=== PATIENT | male | born 1930 | race Caucasian/White ===

== ENCOUNTER 2016-11-24 04:12 | Emergency (ER) | payer MEDICARE, OTHER, MEDICAID ==
[2016-11-24] MEDS ORDERED: Albuterol/Ipratropium 3.0-0.5 MG/3 ML Neb Soln NEB ONE (04:42)
[2016-11-24] MEDS ORDERED: Levofloxacin/Dextrose 5%-Water 500 MG in Premix Bag 1 BAG IV ONE (04:43)
[2016-11-24] MEDS ORDERED: Sodium Chloride 0.9% 1,000 ML IV SCH (04:45)
[2016-11-24 05:44] VITALS: BP 82/35
--- NOTE | 2016-11-24 10:37 | CR ---
INDICATION: Clinically pneumonia. CHEST: AP upright portable view of the chest 11/24/2016 was compared with 09/25 and 08/22/2015, revealing linear density at the right lung base with the poor inspiration emphasizing markings, making it difficult to exclude patchy bronchopneumonia. Additionally, the heart may be somewhat enlarged and pulmonary vasculature is prominent, raising question of mild CHF. The aorta is tortuous and calcified in the arch area. Unipolar pacemaker lead is unchanged in position. No free air is noted under the hemidiaphragm leaves. IMPRESSION: 1. Linear atelectasis versus fibrosis at the right lung base with heavy markings at the lung bases, making it difficult to exclude patchy bronchopneumonia. Full inspiration PA and lateral views of the chest may be helpful for further evaluation when clinically possible. 2. ASHD, probable mild cardiomegaly with question of CHF. MTDD
--- NOTE | 2016-11-25 08:50 | ER ---
DATE SEEN: 11/24/2016 The patient was seen at 0430 hours. HISTORY OF CHIEF COMPLAINT: This 86-year-old male comes in with history of congestive heart failure status post previous myocardial infarction, CVA, poor verbalization, weakness, prostate malignancy, dyslipidemia, muscle degeneration, hypertension, and malignant melanoma. This evening the nurses noted he has mild dysarthria and decreased oxygen saturation 85%. His blood pressure dropped from the usual 140s down to 110/52; tachycardia is noted. He has more of a congested cough. He is a resident of the [facility]. The patient was then sent to the ED for further evaluation. PHYSICAL EXAM: The patient is a poor historian. He cannot communicate more than limited groans and moans and single-word verbalizations. Has an audible rhonchi that are moist in his lungs. HEENT: PERRLA intact. Pharynx without abnormality. CHEST: FEW POST RALES LUNGS, PCM noted CARDIAC: no murmur, no S3 or S4 no irreg of rhythm. Abdomen: soft non tender bowel sounds decrased NEURO: CN 2-13 intact except Left Central VII abn: He has right drop in frontalis muscle with decreased wrinkles, right oral droop and right paresis. Does not move his right leg. Decreased sensation to stimulation. Left: He is able to move his left leg and his left upper extremity. 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 He has dysphonia, expressive aphasia and no history of dysphagia. Tongue is midline with uvula midline and gag is in place. X-ray reveals a right lower lobe infiltrate with mild atelectasis. LABORATORY FINDINGS: White count 10,800; PMNs 75; lymphs 18; monos 6; hemoglobin 10.7; and platelets 149,000. Complete metabolic panel normal except for his sodium is 138, potassium 4.0, chloride 105, bicarb is low at 22, BUN 41, creatinine 1.5. BUN to creatinine ratio 26, reflecting dehydration. Glucose 128. ALT is 12, AST is 19, BNP is 321. EKG: Occasional PVC; ischemia; lateral precordials V4, V5, V6; increased R- wave progression through V2, V3. No evidence for posterior myocardial infarction. ASSESSMENT: 1. Pneumonia. 2. No evidence for congestive heart failure. No evidence for myocardial infarction. 3. Dehydration. 4. Anemia. 5. Status post cerebrovascular accident. 6. Spasticity, secondary to baclofen treatment. 7. Pacemaker noted, left chest. 8. Status post previous cerebrovascular accident with dense left cerebrovascular accident and right hemiparesis with marked associated expressive aphasia. 9. Prostate malignancy. 10.Dyslipidemia. 11.Hypertension. 12.Malignant melanoma. 13.The patient was dismissed back to the longterm. Received 400 mg of Levofloxacin IV with flush of normal saline and DuoNeb. The patient is to follow up with the doctor in a week or earlier if worse. DNR/DNI. [place] is not good. He is nonverbal because of his expressive aphasia. /[id number] AAKASH/DAMARIS CHEEK
== END 2016-11-24 07:05 | disposition home or self-care (01) ==
LOC: FB.ED 04:12
DX: J18.9 Pneumonia, unspecified organism (principal); E86.0 Dehydration; D64.9 Anemia, unspecified; E78.5 Hyperlipidemia, unspecified; C43.9 Malignant melanoma of skin, unspecified; C61 Malignant neoplasm of prostate; Z86.69 Personal history of other diseases of the nervous system and sense organs; Z95.0 Presence of cardiac pacemaker; I25.2 Old myocardial infarction; I11.0 Hypertensive heart disease with heart failure; I50.9 Heart failure, unspecified
CPT/HCPCS: 36415; 71010; 80053; 81001; 83605; 83880; 84443; 84484; 85025; 85379; 87040; 87804; 93005; 94640; 94664; 96361; 96365; 99284; 99285; J1956; J7040; J7620

== ENCOUNTER 2018-04-24 14:44 | Emergency (ER) | payer MEDICARE, OTHER, MEDICAID ==
[2018-04-24 16:51] VITALS: BP 157/67
--- NOTE | 2018-04-26 09:31 | EDM.PDOC ---
ED HPI GENERAL MEDICAL PROBLEM - General Chief Complaint: Respiratory Problem Stated Complaint: R CHEST PAIN Time Seen by Provider: 04/24/18 15:00 History Limitations: Reports: Other (DECRASED HEARING DEMENTIA) - History of Present Illness INITIAL COMMENTS - FREE TEXT/NARRATIVE: 87 YEAR OLD [facility] PT WITH LOOSE CLEAR SLIGHTLY PRODUCTIVE COUGH AFTER HAVING COMPOLETED LEVAQUIN TREATMENT OF PNEUMONA AND NOW HAS RIGHT CSHEST WALL PAIN Onset: Today Right chest Pain Score (Numeric/FACES): 4 - Related Data Allergies Allergy/AdvReac Type Severity Reaction Status Date / Time bacitracin Allergy Rash Verified 04/24/18 15:01 [From Neosporin ([id number])] bacitracin zinc Allergy Rash Verified 04/24/18 15:01 [From Neosporin ([id number])] furosemide [From Lasix] Allergy Other Verified 04/24/18 15:01 latex Allergy Redness Verified 04/24/18 15:01 miconazole nitrate Allergy Rash Verified 04/24/18 15:01 [From Neosporin AF] neomycin sulfate Allergy Rash Verified 04/24/18 15:01 [From Neosporin ([id number])] Penicillins Allergy Swelling Verified 04/24/18 15:01 polymyxin B Allergy Rash Verified 04/24/18 15:01 [From Neosporin ([id number])] Home Meds: Home Meds Acetaminophen [Acetaminophen Extra Strength] 1,000 mg PO QPM 12/08/13 [History] Acetaminophen [Tylenol] 650 mg PO ASDIRECTED PRN 12/08/13 [History] Aspirin/Dipyridamole [Aggrenox 200-25 MG] 1 tab PO DAILY 12/08/13 [History] Calcium Carb & Citrate/Vit D3 [Calcium + Vitamin D3 Caplet] 1 each PO DAILY [History] Propylene Glycol/Peg 400 [Systane Liquid Gel Eye Drops] 1 drop EYEBOTH BID 12/08 [History] Sennosides/Docusate Sodium [Senna-S] 2 each PO DAILY 12/08/13 [History] atorvaSTATin [Lipitor] 20 mg PO BEDTIME 12/08/13 [History] Eucalyptus/Menthol [Menthol Cough Drops] 1 ea PO Q4H PRN 01/24/14 [History] Lactulose 30 ml PO DAILY 01/24/14 [History] Magnesium Hydroxide [Milk of Magnesia] 30 ml PO DAILY PRN 01/24/14 [History] Multivitamin [Multivitamins] 1 cap PO DAILY 01/24/14 [History] Sertraline [Zoloft] 150 mg PO DAILY 01/24/14 [History] guaiFENesin/Codeine Phosphate [Guaifen-Codeine 100-10 mg/5 ml] 10 ml PO Q4H PRN 01/24/14 [History] Gabapentin [Neurontin] 300 mg PO DAILY 04/24/18 [History] Glycopyrrolate [Cuvposa] 0.5 mg PO TID 04/24/18 [History] Latanoprost [Xalatan 0.005% Ophth Soln] 1 drop EYEBOTH DAILY 04/24/18 [History] [place]-3/DHA/Epa/Fish Oil [[place]-3 Fish Oil EC 1,000 mg] 2 each PO DAILY [History] Saccharomyces Boulardii [Florastor] 500 mg PO BID 04/24/18 [History] Simethicone 80 mg PO TID 04/24/18 [History] Past Medical History HEENT History: Reports: Glaucoma, Macular Degeneration Cardiovascular History: Reports: Heart Failure, High Cholesterol, Hypertension, Pacemaker Gastrointestinal History: Reports: Other (See Below) Other Gastrointestinal History: nutritional deficincy Genitourinary History: Reports: Prostate Disorder, Urinary Incontinence Musculoskeletal History: Reports: Other (See Below) Other Musculoskeletal History: r hemiplegia, l shoulder frozen Neurological History: Reports: CVA Other Neuro History: convulsions Psychiatric History: Reports: Depression Hematologic History: Reports: Anemia - Past Surgical History GI Surgical History: Reports: Other (See Below) Social & Family History - Family History Family Medical History: Unobtainable - Tobacco Use Smoking Status *Q: Unknown Ever Smoked Second Hand Smoke Exposure: No - Caffeine Use Caffeine Use: Reports: Coffee Caffeine Use Comment: Each morning - Recreational Drug Use Recreational Drug Use: No ED ROS GENERAL - Review of Systems Review Of Systems: See Below Constitutional: Reports: No Symptoms HEENT: Reports: No Symptoms Respiratory: Reports: Pleuritic Chest Pain Cardiovascular: Reports: Chest Pain Endocrine: Reports: No Symptoms GI/Abdominal: Reports: No Symptoms : Reports: No Symptoms Musculoskeletal: Reports: No Symptoms Skin: Reports: No Symptoms Neurological: Reports: No Symptoms, Weakness Psychiatric: Reports: No Symptoms Hematologic/Lymphatic: Reports: No Symptoms Immunologic: Reports: No Symptoms ED EXAM, GENERAL - Physical Exam Exam: See Below Exam Limited By: Other (DEDRSED EAERING) General Appearance: Alert, WD/WN, No Apparent Distress Eye Exam: Bilateral Eye: Normal Inspection Nose: Normal Inspection Throat/Mouth: Normal Inspection Head: Atraumatic, Normocephalic Neck: Normal Inspection Respiratory/Chest: No Respiratory Distress, Crackles, Other (RIGHT POST BASE) Cardiovascular: Normal Peripheral Pulses, Regular Rate, Rhythm, No Edema, No Gallop, No JVD, No Murmur, No Rub Peripheral Pulses: 1+: Radial (L), Radial (R) GI/Abdominal: Soft, Non-Tender, No Organomegaly, No Distention, No Abnormal Bruit, No Mass Back Exam: Normal Inspection Extremities: Normal Inspection, Normal Range of Motion, Non-Tender, No Pedal Edema Neurological: Alert, Oriented, Normal Reflexes Skin Exam: Warm, Dry Lymphatic: No Adenopathy Course - Vital Signs Last Recorded V/S: Last Vital Signs Temp 36.8 C 04/24/18 14:53 Pulse 77 04/24/18 14:53 Resp 20 04/24/18 14:53 BP 157/67 H 04/24/18 14:53 Pulse Ox 100 04/24/18 14:53 - Orders/Labs/Meds Orders: CXR PARTIIALLY RRSOLVED RML INFILTRATE ON COMPARISON TO THE 04/05/18 CXR Labs: Laboratory Tests 04/24/18 04/24/18 04/24/18 Range/Units 15:10 15:10 15:10 WBC 10.5 (4.5-12.0) X10-3/uL RBC 4.45 (4.30-5.75) x10(6)uL Hgb 13.0 (11.5-15.5) g/dL Hct 39.3 (30.0-51.3) % MCV 88.4 (80-96) fL MCH 29.3 (27.7-33.6) pg MCHC 33.2 (32.2-35.4) g/dL RDW 14.5 (11.5-15.5) % Plt Count 283 (125-369) X10(3)uL MPV 7.3 L (7.4-10.4) fL Neut % (Auto) 73.5 (46-82) % Lymph % (Auto) 18.9 (13-37) % Lee % (Auto) 4.7 (4-12) % Eos % (Auto) 3 (1.0-5.0) % Baso % (Auto) 0 (0-2) % Neut # (Auto) 7.7 (1.6-8.3) # Lymph # (Auto) 2.0 (0.6-5.0) # Lee # (Auto) 0.5 (0.0-1.3) # Eos # (Auto) 0.3 (0.0-0.8) # Baso # (Auto) 0.0 (0.0-0.2) # D-Dimer, Quantitative 0.90 H (0.0-0.59) mg/LFEU Sodium 141 (135-145) mmol/L Potassium 4.0 (3.5-5.3) mmol/L Chloride 104 (100-110) mmol/L Carbon Dioxide 31 (21-32) mmol/L BUN 19 H (7-18) mg/dL Creatinine 1.2 (0.70-1.30) mg/dL Est Cr Clr Drug Dosing 41.31 mL/min Estimated GFR (MDRD) 57 L (>60) BUN/Creatinine Ratio 15.8 (9-20) Glucose 107 (80-116) mg/dL Calcium 9.2 (8.6-10.2) mg/dL Total Bilirubin 0.4 (0.1-1.3) mg/dL AST 17 (5-25) IU/L ALT < 6 L (12-36) U/L Alkaline Phosphatase 71 (56-112) IU/L Troponin I (<0.017-0.056) ng/mL Total Protein 8.7 H (6.0-8.0) g/dL Albumin 3.3 (3.2-4.6) g/dL Globulin 5.4 g/dL Albumin/Globulin Ratio 0.6 04/24/18 Range/Units 15:10 WBC (4.5-12.0) X10-3/uL RBC (4.30-5.75) x10(6)uL Hgb (11.5-15.5) g/dL Hct (30.0-51.3) % MCV (80-96) fL MCH (27.7-33.6) pg MCHC (32.2-35.4) g/dL RDW (11.5-15.5) % Plt Count (125-369) X10(3)uL MPV (7.4-10.4) fL Neut % (Auto) (46-82) % Lymph % (Auto) (13-37) % Lee % (Auto) (4-12) % Eos % (Auto) (1.0-5.0) % Baso % (Auto) (0-2) % Neut # (Auto) (1.6-8.3) # Lymph # (Auto) (0.6-5.0) # Lee # (Auto) (0.0-1.3) # Eos # (Auto) (0.0-0.8) # Baso # (Auto) (0.0-0.2) # D-Dimer, Quantitative (0.0-0.59) mg/LFEU Sodium (135-145) mmol/L Potassium (3.5-5.3) mmol/L Chloride (100-110) mmol/L Carbon Dioxide (21-32) mmol/L BUN (7-18) mg/dL Creatinine (0.70-1.30) mg/dL Est Cr Clr Drug Dosing mL/min Estimated GFR (MDRD) (>60) BUN/Creatinine Ratio (9-20) Glucose (80-116) mg/dL Calcium (8.6-10.2) mg/dL Total Bilirubin (0.1-1.3) mg/dL AST (5-25) IU/L ALT (12-36) U/L Alkaline Phosphatase (56-112) IU/L Troponin I < 0.017 L (<0.017-0.056) ng/mL Total Protein (6.0-8.0) g/dL Albumin (3.2-4.6) g/dL Globulin g/dL Albumin/Globulin Ratio Departure - Departure Time of Disposition: 15:45 Disposition: DC/Tfer to Manager Client [facility] 64 Condition: Good Clinical Impression: Pleuritis - Discharge Information *PRESCRIPTION DRUG MONITORING PROGRAM REVIEWED*: No *COPY OF PRESCRIPTION DRUG MONITORING REPORT IN PATIENT STEPHANIE: No Referrals: Ostmo,Victoriano, MD [Primary Care Provider] - Forms: ED Department Discharge Additional Instructions: return to N home, duo neb tid for 7 days
--- NOTE | 2018-04-26 12:01 | CR ---
INDICATION: Chest discomfort. CHEST: An AP upright view of the chest with a lateral view of the chest times two, obtained 04/24/2018, was compared with 04/05/2018 and 11/24/2016, revealing the heart to appear enlarged with tortuous calcified aorta with unipolar pacemaker lead unchanged in position. Minimal anterior compression fractures times two are noted in the upper middle thoracic spine, unchanged from previous study. Somewhat heavy markings are noted at the lung bases posteriorly, making it difficult to exclude patchy bronchopneumonia. No gross consolidating pneumonia or definite effusion was seen, however. IMPRESSION: 1. No definite acute process but cannot exclude patchy bronchopneumonia at the lung bases. 2. ASHD with cardiomegaly. 3. Probable osteoporosis and minimal compressions - stable. MTDD
== END 2018-04-24 16:55 ==
LOC: FB.ED 14:44
DX: R09.1 Pleurisy (principal); I11.0 Hypertensive heart disease with heart failure; I50.9 Heart failure, unspecified; Z79.82 Long term (current) use of aspirin; Z79.899 Other long term (current) drug therapy; Z91.040 Latex allergy status; Z88.0 Allergy status to penicillin; Z88.1 Allergy status to other antibiotic agents
CPT/HCPCS: 36415; 71046; 80053; 84484; 85025; 85379; 99284

== ENCOUNTER 2019-01-09 17:54 | Inpatient (IN) | payer MEDICARE, OTHER, MEDICAID ==
[2019-01-09] MEDS ORDERED: Albuterol/Ipratropium 3.0-0.5 MG/3 ML Neb Soln NEB ONE (18:09)
[2019-01-09] MEDS ORDERED: Clindamycin in 0.9 % Sod Chlor 600 MG/50 ML BAG IV SCH (19:00)
[2019-01-09] MEDS ORDERED: Ondansetron 4 MG/2 ML SDV IV PRN (19:10)
--- NOTE | 2019-01-09 19:14 | EDM.PDOC ---
ED HPI GENERAL MEDICAL PROBLEM - General Chief Complaint: Respiratory Problem Stated Complaint: ASPIRATED SOMETHING Time Seen by Provider: 01/09/19 17:54 Source of Information: Reports: Patient, Other (nurse) History Limitations: Reports: Altered Mental Status, Physical Impairment - History of Present Illness INITIAL COMMENTS - FREE TEXT/NARRATIVE: 88 y.o.w.m with multiple medical issues, [place] because of SOB and cough during dinner intake. Pt si not able to give a HPI and no family is present. BP 191/77 RR 22 Pulse ox 90% on 6 liters O2 pulse 80 Temp 36.4 Onset Date: 01/09/19 Onset Time: 09:00 Duration: Hour(s):, Getting Worse, Intermittent Location: Reports: Chest Quality: Reports: Other Severity: Mild Improves with: Reports: Medication, Rest Worsens with: Reports: Breathing, Movement Context: Reports: Other (possible aspiration) - Related Data Allergies Allergy/AdvReac Type Severity Reaction Status Date / Time bacitracin Allergy Rash Verified 01/09/19 18:05 [From Neosporin ([id number])] bacitracin zinc Allergy Rash Verified 01/09/19 18:05 [From Neosporin ([id number])] furosemide [From Lasix] Allergy Other Verified 01/09/19 18:05 latex Allergy Redness Verified 01/09/19 18:05 miconazole nitrate Allergy Rash Verified 01/09/19 18:05 [From Neosporin AF] neomycin sulfate Allergy Rash Verified 01/09/19 18:05 [From Neosporin ([id number])] Penicillins Allergy Swelling Verified 01/09/19 18:05 polymyxin B Allergy Rash Verified 01/09/19 18:05 [From Neosporin ([id number])] Home Meds: Home Meds Acetaminophen [Acetaminophen Extra Strength] 1,000 mg PO BEDTIME 12/08/13 [ History] Aspirin/Dipyridamole [Aggrenox 200-25 MG] 1 cap PO BID 12/08/13 [History] Sennosides/Docusate Sodium [Senna-S] 2 each PO BID 12/08/13 [History] Lactulose 15 ml PO DAILY 01/24/14 [History] Magnesium Hydroxide [Milk of Magnesia] 30 ml PO DAILY PRN 01/24/14 [History] Sertraline [Zoloft] 150 mg PO DAILY 01/24/14 [History] guaiFENesin/Codeine Phosphate [Guaifen-Codeine 100-10 mg/5 ml] 10 ml PO Q4H PRN 01/24/14 [History] Gabapentin [Neurontin] 300 mg PO BID@08,17 04/24/18 [History] Latanoprost [Xalatan 0.005% Ophth Soln] 1 drop EYEBOTH BEDTIME 04/24/18 [History ] Albuterol Sulfate 3 ml INH Q4H PRN 01/09/19 [History] Alendronate Sodium [Fosamax] 70 mg PO FR 01/09/19 [History] Bisacodyl [Dulcolax] 10 mg RECTAL Q72H PRN 01/09/19 [History] Loperamide [Imodium] 2 mg PO ASDIRECTED 01/09/19 [History] Nabumetone [Relafen] 500 mg PO DAILY 01/09/19 [History] atorvaSTATin [Lipitor] 20 mg PO BEDTIME 01/09/19 [History] levETIRAcetam [Keppra] 500 mg PO BID 01/09/19 [History] Acetaminophen [Tylenol] 650 mg PO Q4H PRN 01/10/19 [History] Glycopyrrolate [Robinul] 0.5 mg PO TID@08,14,20 01/10/19 [History] Propylene Glycol [Systane Balance] 1 drop EYEBOTH BID 01/10/19 [History] Past Medical History HEENT History: Reports: Glaucoma, Macular Degeneration Cardiovascular History: Reports: Heart Failure, High Cholesterol, Hypertension, Pacemaker Gastrointestinal History: Reports: Other (See Below) Other Gastrointestinal History: nutritional deficincy Genitourinary History: Reports: Prostate Disorder, Urinary Incontinence Musculoskeletal History: Reports: Other (See Below) Other Musculoskeletal History: r hemiplegia, l shoulder frozen Neurological History: Reports: CVA Other Neuro History: convulsions Psychiatric History: Reports: Depression Hematologic History: Reports: Anemia - Past Surgical History GI Surgical History: Reports: Other (See Below) Social & Family History - Family History Family Medical History: Unobtainable - Caffeine Use Caffeine Use: Reports: Coffee Caffeine Use Comment: Each morning ED ROS GENERAL - Review of Systems Review Of Systems: Unable To Obtain ED EXAM, GENERAL - Physical Exam Exam: See Below Exam Limited By: Altered Mental Status General Appearance: Alert, WD/WN, Mild Distress, Moderate Distress Eye Exam: Bilateral Eye: Normal Inspection Ears: Normal External Exam Ear Exam: Bilateral Ear: Auricle Normal Nose: Normal Inspection Throat/Mouth: Normal Inspection Head: Atraumatic, Normocephalic Neck: Normal Inspection, Supple, Non-Tender, Full Range of Motion Respiratory/Chest: Respiratory Distress, Crackles, Rhonchi, Prolonged Expiration Cardiovascular: Normal Peripheral Pulses Peripheral Pulses: 2+: Brachial (L) GI/Abdominal: Normal Bowel Sounds, Soft, Non-Tender, No Organomegaly (Male) Exam: Deferred Rectal (Males) Exam: Deferred Back Exam: Normal Inspection, Full Range of Motion Extremities: Normal Inspection, Normal Range of Motion, Non-Tender, No Pedal Edema, Normal Capillary Refill Neurological: Alert, CN II-XII Intact Psychiatric: Normal Affect, Normal Mood Skin Exam: Warm, Dry, Intact, Normal Color, No Rash Lymphatic: No Adenopathy EKG INTERPRETATION EKG Date: 01/09/19 Time: 20:30 Rhythm: NSR Rate (Beats/Min): 90 [place]: Normal P-Wave: Present QRS: Normal ST-T: Normal QT: Normal Comparison: NA - No Prior EKG (Occ monomorphic Ventricular beats) Course - Vital Signs Text/Narrative:: 88 y.o.w.m with multiple medical issues, was [place] because of SOB and cough during dinner intake. Pt si not able to give a HPI and no family is present. BP 191/77 RR 22 Pulse ox 90% on 6 liters O2 pulse 80 Temp 36.4 PE: [facility]NWD WM with intermitted cough, rales and hypoxemia Imaging: CXR: NAD, official report is pending Labs: WBC 14.8 HGB 13.00 Na 141 K 4.1 Cr. 1.4 BUN 29 GFR 41 BNP 4179 Impression: Poss Asp pneumonia, Dysphagia, CHF Tx: (Pt is allergic to lasix)considered Bumex, Duo nebs, O2 Clindamycin, O2 by NC Reexam: Improved Plan: Admit to [facility] for obs Last Recorded V/S: Last Vital Signs Temp 35.7 C 01/11/19 03:30 Pulse 74 01/11/19 03:30 Resp 26 H 01/11/19 03:30 BP 117/43 L 01/11/19 03:30 Pulse Ox 96 01/11/19 03:30 - Orders/Labs/Meds Orders: Active Orders 24 hr Category Date Time Status Swallowing Function w Video [CR] Stat Exams 01/11/19 15:00 Ordered Aspirin/Dipyridamole [Aggrenox 200-25 MG] Med 01/10/19 21:00 Active 1 cap PO BID Bisacodyl [Dulcolax] Med 01/10/19 10:42 Active 10 mg RECTAL Q72H PRN Gabapentin [Neurontin] Med 01/10/19 17:00 Active 300 mg PO BID@08,17 Glycopyrrolate [Robinul] Med 01/10/19 14:00 Active 0.5 mg PO TID@08,14,20 Lactulose [Chronulac] Med 01/11/19 09:00 Active 10 gm PO DAILY Latanoprost [Xalatan 0.005% Ophth Soln] Med 01/10/19 21:00 Active 0 ml EYEBOTH BEDTIME atorvaSTATin [Lipitor] Med 01/10/19 21:00 Active 20 mg PO BEDTIME cefTRIAXone [Rocephin] Med 01/10/19 11:00 Active 1 gm IVPUSH Q24H levETIRAcetam [Keppra] Med 01/10/19 11:45 Active 500 mg PO BID Medication Orders Albuterol (Proventil Neb Soln) 2.5 mg NEB Q2H PRN PRN Reason: Shortness of Breath Last Admin: 01/11/19 03:43 Dose: 2.5 mg Admin: 01/10/19 18:51 Dose: 2.5 mg Admin: 01/10/19 15:03 Dose: 2.5 mg Admin: 01/10/19 12:10 Dose: 2.5 mg Admin: 01/10/19 03:58 Dose: 2.5 mg Admin: 01/10/19 01:40 Dose: 2.5 mg Admin: 01/09/19 22:52 Dose: 2.5 mg Atorvastatin Calcium (Lipitor) 20 mg PO BEDTIME ASHVIN Last Admin: 01/10/19 20:31 Dose: 20 mg Bisacodyl (Dulcolax) 10 mg RECTAL Q72H PRN PRN Reason: Constipation Ceftriaxone Sodium (Rocephin) 1 gm IVPUSH Q24H [facility] Last Admin: 01/10/19 11:55 Dose: 1 gm Dipyridamole/Aspirin (Aggrenox 200-25 Mg) 1 cap PO BID [facility] Last Admin: 01/10/19 20:30 Dose: 1 cap Gabapentin (Neurontin) 300 mg PO BID@ [facility] Last Admin: 01/10/19 17:51 Dose: 300 mg Glycopyrrolate (Robinul) 0.5 mg PO TID@,, [facility] Last Admin: 01/10/19 20:29 Dose: 0.5 mg Admin: 01/10/19 13:39 Dose: 0.5 mg Lactulose (Chronulac) 10 gm PO DAILY [facility] Latanoprost (Xalatan 0.005% Ophth Soln) 0 ml EYEBOTH BEDTIME [facility] Last Admin: 01/10/19 20:31 Dose: 1 drop Levetiracetam (Keppra) 500 mg PO BID [facility] Last Admin: 01/10/19 20:30 Dose: 500 mg Admin: 01/10/19 13:39 Dose: 500 mg Methylprednisolone Sodium Succinate (Solu-Medrol) 40 mg IVPUSH Q8H [facility] Last Admin: 01/11/19 01:20 Dose: 40 mg Admin: 01/10/19 18:23 Dose: 40 mg Ondansetron HCl (Zofran) 4 mg IV Q4H PRN PRN Reason: Nausea/Vomiting Sodium Chloride (Saline Flush) 10 ml FLUSH ASDIRECTED PRN PRN Reason: Keep Vein Open Last Admin: 01/10/19 18:24 Dose: 10 ml Admin: 01/10/19 11:55 Dose: 10 ml Admin: 01/10/19 04:07 Dose: 10 ml Admin: 01/09/19 20:11 Dose: 10 ml Labs: Laboratory Tests 01/09/19 01/09/19 01/09/19 Range/Units 18:18 18:18 18:18 WBC 14.8 H (4.5-12.0) X10-3/uL RBC 4.41 (4.30-5.75) x10(6)uL Hgb 13.0 L (13.5-17.8) g/dL Hct 38.3 (30.0-51.3) % MCV 87.0 (80-96) fL MCH 29.6 (27.7-33.6) pg MCHC 34.0 (32.2-35.4) g/dL RDW 15.0 (11.5-15.5) % Plt Count 240 (125-369) X10(3)uL MPV 7.3 L (7.4-10.4) fL Add Manual Diff Yes Neutrophils % (Manual) 75 (46-82) % Band Neutrophils % 5 (0-6) % Lymphocytes % (Manual) 14 (13-37) % Monocytes % (Manual) 6 (4-12) % Sodium 141 (135-145) mmol/L Potassium 4.0 (3.5-5.3) mmol/L Chloride 103 (100-110) mmol/L Carbon Dioxide 25 (21-32) mmol/L BUN 29 H (7-18) mg/dL Creatinine 1.4 H (0.70-1.30) mg/dL Est Cr Clr Drug Dosing TNP Estimated GFR (MDRD) 48 L (>60) BUN/Creatinine Ratio 20.7 H (9-20) Glucose 184 H (80-116) mg/dL Lactic Acid (0.4-2.2) mmol/L Calcium 9.1 (8.6-10.2) mg/dL NT-Pro-B Natriuret Pep 4179 H* (<=450) pg/mL 01/09/19 Range/Units 18:18 WBC (4.5-12.0) X10-3/uL RBC (4.30-5.75) x10(6)uL Hgb (13.5-17.8) g/dL Hct (30.0-51.3) % MCV (80-96) fL MCH (27.7-33.6) pg MCHC (32.2-35.4) g/dL RDW (11.5-15.5) % Plt Count (125-369) X10(3)uL MPV (7.4-10.4) fL Add Manual Diff Neutrophils % (Manual) (46-82) % Band Neutrophils % (0-6) % Lymphocytes % (Manual) (13-37) % Monocytes % (Manual) (4-12) % Sodium (135-145) mmol/L Potassium (3.5-5.3) mmol/L Chloride (100-110) mmol/L Carbon Dioxide (21-32) mmol/L BUN (7-18) mg/dL Creatinine (0.70-1.30) mg/dL Est Cr Clr Drug Dosing Estimated GFR (MDRD) (>60) BUN/Creatinine Ratio (9-20) Glucose (80-116) mg/dL Lactic Acid 2.2 (0.4-2.2) mmol/L Calcium (8.6-10.2) mg/dL NT-Pro-B Natriuret Pep (<=450) pg/mL Meds: Medications Generic Name Dose Route Start Last Admin Trade Name Freq PRN Reason Stop Dose Admin Albuterol 2.5 mg 01/09/19 22:17 01/11/19 03:43 Proventil Neb Soln NEB 2.5 mg Q2H PRN Administration Shortness of Breath Atorvastatin Calcium 20 mg 01/10/19 21:00 01/10/19 20:31 Lipitor PO 20 mg BEDTIME ASHVIN Administration Bisacodyl 10 mg 01/10/19 10:42 Dulcolax RECTAL Q72H PRN Constipation Ceftriaxone Sodium 1 gm 01/10/19 11:00 01/10/19 11:55 Rocephin IVPUSH 1 gm Q24H ASHVIN Administration Dipyridamole/Aspirin 1 cap 01/10/19 21:00 01/10/19 20:30 Aggrenox 200-25 Mg PO 1 cap BID ASHVIN Administration Gabapentin 300 mg 01/10/19 17:00 01/10/19 17:51 Neurontin PO 300 mg BID@ ASHVIN Administration Glycopyrrolate 0.5 mg 01/10/19 14:00 01/10/19 20:29 Robinul PO 0.5 mg TID@08,14,20 ASHVIN Administration Lactulose 10 gm 01/11/19 09:00 Chronulac PO DAILY ASHVIN Latanoprost 0 ml 01/10/19 21:00 01/10/19 20:31 Xalatan 0.005% Ophth Soln EYEBOTH 1 drop BEDTIME ASHVIN Administration Levetiracetam 500 mg 01/10/19 11:45 01/10/19 20:30 Keppra PO 500 mg BID ASHVIN Administration Methylprednisolone Sodium Succinate 40 mg 01/10/19 18:00 01/11/19 01:20 Solu-Medrol IVPUSH 40 mg Q8H ASHVIN Administration Ondansetron HCl 4 mg 01/09/19 19:10 Zofran IV Q4H PRN Nausea/Vomiting Sodium Chloride 10 ml 01/09/19 19:10 01/10/19 18:24 Saline Flush FLUSH 10 ml ASDIRECTED PRN Administration Keep Vein Open Discontinued Medications Generic Name Dose Route Start Last Admin Trade Name Augustineq PRN Reason Stop Dose Admin Albuterol/Ipratropium 3 ml 01/09/19 18:09 01/09/19 18:20 Duoneb 3.0-0.5 Mg/3 Ml NEB 01/09/19 18:10 3 ml ONETIME ONE Administration Clindamycin/Sodium Chloride 600 mg in 50 mls @ 100 mls/hr 01/09/19 19:00 20:24 Cleocin In Ns IV Not Given Q8H ASHVIN Clindamycin Phosphate 600 mg/ 54 mls @ 162 mls/hr 01/09/19 20:00 Dextrose/Water IV Q8H ASHVIN Clindamycin Phosphate 600 mg/ 54 mls @ 162 mls/hr 01/09/19 20:00 01/09/19 19: 50 Sodium Chloride IV 01/09/19 21:00 162 mls/hr Q8H ASHVIN Administration Clindamycin/Sodium Chloride 600 mg in 50 mls @ 100 mls/hr 01/09/19 04:00 04:01 Cleocin In Ns IV 100 mls/hr Q8H ASHVIN Administration Departure - Departure Time of Disposition: 17:00 Disposition: Admitted As Inpatient 67 Condition: Fair Clinical Impression: Pneumonia - Discharge Information - My Orders Last 24 Hours: My Active Orders 01/11/19 15:00 Swallowing Function w Video [CR] Stat - Assessment/Plan Last 24 Hours: My Active Orders 01/11/19 15:00 Swallowing Function w Video [CR] Stat
[2019-01-09] MEDS ORDERED: Clindamycin Phosphate 600 MG in Dextrose 5% in Water 50 ML IV SCH ×2 (20:00)
[2019-01-09] MEDS: Sodium Chloride 0.9% 10 ML Syringe FLUSH PRN (20:11)
[2019-01-09] MEDS: Clindamycin in 0.9 % Sod Chlor 600 MG/50 ML BAG IV SCH ×2 (20:22→20:23)
[2019-01-09] MEDS: Albuterol 0.083% 2.5 MG/3 ML Neb Soln NEB PRN (22:52)
[2019-01-10] MEDS: Albuterol 0.083% 2.5 MG/3 ML Neb Soln NEB PRN ×5 (01:40→18:51)
[2019-01-10] MEDS: Clindamycin in 0.9 % Sod Chlor 600 MG/50 ML BAG IV SCH (04:01)
[2019-01-10] MEDS: Sodium Chloride 0.9% 10 ML Syringe FLUSH PRN ×3 (04:07→18:24)
[2019-01-10] MEDS ORDERED: Bisacodyl 10 MG Supp RECTAL PRN (10:42)
[2019-01-10] MEDS ORDERED: cefTRIAXone 1 GM in Sodium Chloride 0.9% 50 ML IV SCH (10:45)
[2019-01-10] MEDS: cefTRIAXone 1 GM Vial IVPUSH SCH (11:55)
[2019-01-10] MEDS: levETIRAcetam 500 MG Tab PO SCH ×2 (13:39→20:30)
[2019-01-10] MEDS: Glycopyrrolate 1 MG Tab PO SCH ×2 (13:39→20:29)
[2019-01-10] MEDS: Gabapentin 300 MG Cap PO SCH (17:51)
[2019-01-10] MEDS: methylPREDNISolone Sodium Succinate 40 MG/1 ML SDV IVPUSH SCH (18:23)
[2019-01-10] MEDS: Aspirin/Dipyridamole 200-25 MG Cap.ER PO SCH (20:30)
[2019-01-10] MEDS: atorvaSTATin 20 MG Tab PO SCH (20:31)
[2019-01-10] MEDS: Latanoprost 0.005% Ophth Soln 2.5 ML Bottle EYEBOTH SCH (20:31)
[2019-01-11] MEDS: methylPREDNISolone Sodium Succinate 40 MG/1 ML SDV IVPUSH SCH ×3 (01:20→18:28)
[2019-01-11] MEDS: Albuterol 0.083% 2.5 MG/3 ML Neb Soln NEB PRN ×2 (03:43→09:19)
[2019-01-11] MEDS: Aspirin/Dipyridamole 200-25 MG Cap.ER PO SCH ×2 (08:02→20:23)
[2019-01-11] MEDS: levETIRAcetam 500 MG Tab PO SCH ×2 (08:02→20:23)
[2019-01-11] MEDS: Glycopyrrolate 1 MG Tab PO SCH ×3 (08:02→20:22)
[2019-01-11] MEDS: Lactulose Soln 10 GM/15 ML 15 ML UD Cup PO SCH (08:02)
[2019-01-11] MEDS: Gabapentin 300 MG Cap PO SCH ×2 (08:02→17:52)
[2019-01-11] MEDS ORDERED: Sodium Chloride 0.9% 250 ML IV SCH (09:00)
[2019-01-11] MEDS ORDERED: Sodium Chloride 0.9% 1,000 ML IV SCH (09:00)
[2019-01-11] MEDS: cefTRIAXone 1 GM Vial IVPUSH SCH (11:00)
[2019-01-11] MEDS: Clindamycin in 0.9 % Sod Chlor 600 MG/50 ML BAG IV SCH ×2 (11:08→17:39)
--- NOTE | 2019-01-11 13:12 | PN ---
DATE SEEN: 01/11/2019 SUBJECTIVE: Bijan Hand is an 88-year-old male from a local [place] [facility], who was admitted to [place] with pneumonia. Aspiration breaths otherwise. Was seen in the emergency room. Complicated shortness of breath, raspy respirations, and on O2. Had a pretty good night. Continues to have a bit of a raspy problematic cough. Cough comes and goes. LABORATORY STUDIES: White count 14,800. Electrolytes satisfactory. Creatinine 1.4, BUN 29. GFR 48. Chest x-ray: Upon review, AP, nondiagnostic, likely pneumonia. More definitive x-ray will be obtained. OBJECTIVE: VITAL SIGNS: 36.6, 68 is the pulse, 131/49, 94% on 2 L. GENERAL: Soft spoken. Hard of hearing. Weak voice. Mouth and oropharynx clear. NECK: Benign. Thyroid small. CHEST: Diffuse wheezing, coarse rhonchi. HEART: Regular. ABDOMEN: Benign. SKIN: Without rash. ASSESSMENT: Pneumonia. PLAN: We will obtain a better AP and lateral view. Continue Rocephin and clindamycin. Complementary care and well being. /[id number] IZZY/DAMARIS
--- NOTE | 2019-01-11 13:33 | CR ---
INDICATION: Cough, pneumonia, dyspnea. CHEST: An AP upright view of the chest was obtained 01/11/19 and compared with 01/09/19 and 08/10/18, again revealing the heart to be enlarged. The aorta is tortuous with calcification in the arch with a single pole cardiac pacemaker lead unchanged in position. Bibasilar and middle lung field infiltration is present, compatible with bilateral pneumonia. The infiltrate in the right mid lung field appears more prominent than on 01/09/19. The infiltrate at the lung bases appears similar. No other change or new acute process was identified. IMPRESSION: Bilateral pneumonia, question possibility of aspiration pneumonia. Slightly increased infiltrate is suggested in the right mid lung field to lower lung field. MTDD
--- NOTE | 2019-01-11 13:44 | CR ---
INDICATION: Dysphagia, aspiration pneumonia. SWALLOWING FUNCTION WITH VIDEO: Utilizing 4 minutes, 37 seconds videofluoroscopy time with DVD recording and various barium-tinged meals up to the level of puree, the swallowing mechanism was evaluated and revealed a very high degree of retention in the valleculae and piriform sinuses with fairly extreme delay in initiation of the swallowing mechanism. The swallowing mechanism was not efficient in clearing the valleculae and only moderately efficient in clearing the priform sinuses. No definite penetration or aspiration occurred during the examination, however. MTDD
--- NOTE | 2019-01-11 14:01 | HP ---
ADMISSION DATE: 01/10/2019 CHIEF COMPLAINT: Respiratory difficulty and pneumonia. HISTORY OF PRESENT ILLNESS: Bijan Hand is an 88-year-old male, a resident of [facility], was seen and evaluated at [facility] on 01/09/2019. Presented from the [facility] with suspicion for aspiration, complicated cough, dyspnea, low-grade fever, and essentially reduced well-being. Admission to hospital was indicated, timing appropriate. Host of medical problems including CVA, heart failure, hyperlipidemia, hypertension, left-sided pacemaker, and right hemiplegia. MEDICATIONS: On admission include: 1. P.r.n. Tylenol. 2. Albuterol p.r.n. 3. Fosamax 70 mg one p.o. daily, osteoporosis. 4. Aggrenox 200-25 one p.o. b.i.d., CVA. 5. Atorvastatin 20 mg one p.o. at bedtime, hyperlipidemia. 6. Dulcolax suppository p.r.n. 7. Gabapentin 300 mg b.i.d., neuropathic pain. 8. Robinul 0.5 t.i.d., oral secretions. 9. Tylenol with Codeine p.r.n. for cough. 10.Lactulose 15 mL one daily. 11.Xalatan eye drops, one drop at bedtime. 12.Keppra 500 mg b.i.d., seizures. 13.Haloperidol 2 mg t.i.d. p.r.n. 14.Milk of magnesia p.r.n. 15.Relafen 500 mg one p.o. daily. 16.Propylene glycol one drop both eyes b.i.d. 17.Senna-S two p.o. b.i.d., constipation. 18.Sertraline 150 mg one p.o. daily, mood disorder. ALLERGIES: To Bactroban, bacitracin, latex, miconazole, neomycin, penicillins, polymyxin. PAST HISTORY: Difficult to ascertain. The patient cannot give history. Please see noted issues including congestive heart failure, hypertension, hyperlipidemia, mood disorder, and pacemaker. SOCIAL HISTORY: Resident of [facility], lives at home independently. REVIEW OF SYSTEMS: Impossible as I cannot give clear instructions. PHYSICAL EXAMINATION: VITAL SIGNS: 36.7, 107 is the mean pulse, 102/46, respiratory rate 28, and 93% on 3 L. GENERAL: Appears comfortable in the morning of 01/10. HEENT: Reveal funduscopic benign. Bright TMs. Clear nasal discharge. Mouth and oropharynx clear. Poor dentition. Tongue midline. Good gag reflex. NECK: Benign. Thyroid small. CHEST: Decreased breath sounds at both bases. HEART: Distant heart sounds. Pacemaker palpable, left upper chest. ABDOMEN: Benign. No hepatosplenomegaly, AND RECTAL: Deferred. EXTREMITIES: Well perfused. LABORATORY STUDIES: White count 14,800, normal differential. Electrolytes satisfactory. BUN 29, creatinine 1.4. GFR 48. BNP 4179. RADIOGRAPHS: Right lower lobe pneumonia. ASSESSMENT: Right lower lobe pneumonia with underlying cardiac disease. PLAN: Medications, care, and treatment appropriate. He is presently on clindamycin, albuterol. Fluids, hydration, and present treatment options. Expect short-term stay inpatient. /[id number] IZZY/DAMARIS
[2019-01-11] MEDS: atorvaSTATin 20 MG Tab PO SCH (20:23)
[2019-01-11] MEDS: Latanoprost 0.005% Ophth Soln 2.5 ML Bottle EYEBOTH SCH (20:24)
[2019-01-12] MEDS: Clindamycin in 0.9 % Sod Chlor 600 MG/50 ML BAG IV SCH ×3 (02:11→18:26)
[2019-01-12] MEDS: methylPREDNISolone Sodium Succinate 40 MG/1 ML SDV IVPUSH SCH ×3 (02:11→18:27)
[2019-01-12] MEDS: Sodium Chloride 0.9% 10 ML Syringe FLUSH PRN ×7 (02:19→19:07)
[2019-01-12] MEDS: Gabapentin 300 MG Cap PO SCH ×2 (08:42→16:56)
[2019-01-12] MEDS: Glycopyrrolate 1 MG Tab PO SCH ×3 (08:42→20:14)
[2019-01-12] MEDS: levETIRAcetam 500 MG Tab PO SCH ×2 (08:42→20:15)
[2019-01-12] MEDS: Lactulose Soln 10 GM/15 ML 15 ML UD Cup PO SCH (08:43)
[2019-01-12] MEDS: Aspirin/Dipyridamole 200-25 MG Cap.ER PO SCH ×2 (08:43→20:15)
[2019-01-12] MEDS: cefTRIAXone 1 GM Vial IVPUSH SCH (10:52)
--- NOTE | 2019-01-12 13:31 | PN ---
DATE SEEN: 01/12/2019 SUBJECTIVE: Bijan Hand is a delightful 88-year-old male admitted with acute respiratory distress, some suspicion for aspiration. [facility]ident [facility] [place]. Microbiology: Blood cultures negative x48 hours. Radiograph, stability 01/11/2019. Laboratory studies: Admission white count [id number], hemoglobin 13.0, electrolytes as noted. Feeling better. Cough is improving. Secretions are improving. OBJECTIVE: VITAL SIGNS: 36.7, 74, 164/83, 18, 93%. GENERAL: Limited conversation. NECK: Benign. No JVD. CHEST: Coarse rhonchi, particularly right side. HEART: No ectopy. Soft murmur present. ABDOMEN: Benign. ASSESSMENT: Aspiration pneumonia. PLAN: Medications on board, time appropriate. Given penicillin allergy, presently on ceftriaxone and clindamycin. Complementary care and well being. Few more days' stay expected. /[id number] IZZY/DAMARIS
[2019-01-12] MEDS: Albuterol 0.083% 2.5 MG/3 ML Neb Soln NEB PRN (15:19)
[2019-01-12] MEDS: atorvaSTATin 20 MG Tab PO SCH (20:16)
[2019-01-12] MEDS: Latanoprost 0.005% Ophth Soln 2.5 ML Bottle EYEBOTH SCH (20:18)
[2019-01-13] MEDS: Sodium Chloride 0.9% 10 ML Syringe FLUSH PRN ×7 (02:21→19:24)
[2019-01-13] MEDS: methylPREDNISolone Sodium Succinate 40 MG/1 ML SDV IVPUSH SCH ×3 (02:21→18:42)
[2019-01-13] MEDS: Clindamycin in 0.9 % Sod Chlor 600 MG/50 ML BAG IV SCH ×3 (02:23→18:45)
[2019-01-13] MEDS: Glycopyrrolate 1 MG Tab PO SCH ×3 (08:13→21:05)
[2019-01-13] MEDS: Gabapentin 300 MG Cap PO SCH ×2 (08:13→18:40)
[2019-01-13] MEDS: Lactulose Soln 10 GM/15 ML 15 ML UD Cup PO SCH (08:13)
[2019-01-13] MEDS: Aspirin/Dipyridamole 200-25 MG Cap.ER PO SCH ×2 (08:13→21:06)
[2019-01-13] MEDS: levETIRAcetam 500 MG Tab PO SCH ×2 (08:14→20:49)
[2019-01-13] MEDS: cefTRIAXone 1 GM Vial IVPUSH SCH (11:22)
--- NOTE | 2019-01-13 11:24 | PN ---
DATE SEEN: 01/13/2019 SUBJECTIVE: Mr. Hand is an 88-year-old, male, admitted with pneumonia. Most recent radiograph 01/11/2019 reviewed. Stability. Followup film will be obtained. Tolerating his medicines, aspiration consider, ceftriaxone, and clindamycin. Followup films will be obtained. LABORATORY STUDIES: On 01/12/2019; white count 15,100, hemoglobin 12.2. OBJECTIVE: VITAL SIGNS: 36.7, 78, 174/72, 92%. GENERAL: Minimally attentive, speech was bit garbled. NECK: No JVD. CHEST: Coarse rhonchi at both bases. HEART: Distant heart sounds. ABDOMEN: Benign. ASSESSMENT: Pneumonia. PLAN: We will repeat x-ray today, complementary care and well being. Expect a few more days of intravenous therapy given source and origin. Blood cultures negative. /[id number] IZZY/DAMARIS
--- NOTE | 2019-01-13 13:12 | CR ---
INDICATION: Followup pneumonia. CHEST: An AP upright portable view of the chest 01/13/19 was compared with and 08/10/18, again revealing the heart to be enlarged. The aorta is tortuous with calcification and with a unipolar pacemaker lead unchanged in position. Heavy markings remain present in the mid lung field on the right and both lung bases, likely fibrotic in nature but making it difficult to exclude areas of patchy bronchopneumonia. Upper lung field vasculature is also somewhat prominent, raising question of a minimal or early CHF. This should be correlated clinically. MTDD
[2019-01-13] MEDS: Diltiazem IR 30 MG Tab PO SCH (18:40)
[2019-01-13] MEDS: Latanoprost 0.005% Ophth Soln 2.5 ML Bottle EYEBOTH SCH (20:31)
[2019-01-13] MEDS: atorvaSTATin 20 MG Tab PO SCH (20:49)
[2019-01-14] MEDS: Diltiazem IR 30 MG Tab PO SCH ×2 (02:06→09:20)
[2019-01-14] MEDS: Clindamycin in 0.9 % Sod Chlor 600 MG/50 ML BAG IV SCH ×2 (02:07→11:17)
[2019-01-14] MEDS: methylPREDNISolone Sodium Succinate 40 MG/1 ML SDV IVPUSH SCH ×2 (02:07→11:17)
[2019-01-14] MEDS: Sodium Chloride 0.9% 10 ML Syringe FLUSH PRN ×2 (02:09→02:20)
[2019-01-14] MEDS: Glycopyrrolate 1 MG Tab PO SCH (08:41)
[2019-01-14] MEDS: Lactulose Soln 10 GM/15 ML 15 ML UD Cup PO SCH (08:42)
[2019-01-14] MEDS: Aspirin/Dipyridamole 200-25 MG Cap.ER PO SCH (08:42)
[2019-01-14] MEDS: levETIRAcetam 500 MG Tab PO SCH (08:42)
[2019-01-14] MEDS: Gabapentin 300 MG Cap PO SCH (09:20)
--- NOTE | 2019-01-14 10:51 | PCM.PN ---
- General Info Date of Service: 01/14/19 Subjective Update: Bijan feels much better today. He has no complaints, is being treated for aspiration pneumonia. Apparently the diet that was recommended by speech therapy is unacceptable today. No fever and last 24 hours. - Review of Systems HEENT: Reports: No Symptoms Pulmonary: Reports: Cough Cardiovascular: Reports: No Symptoms Gastrointestinal: Reports: No Symptoms Genitourinary: Reports: No Symptoms - Patient Data Vitals - Most Recent: Last Vital Signs Temp 97.4 F 01/14/19 08:00 Pulse 73 01/14/19 08:00 Resp 15 01/14/19 08:00 BP 160/85 H 01/14/19 08:00 Pulse Ox 99 01/14/19 08:00 Weight - Most Recent: 86.455 kg I&O - Last 24 Hours: Intake & Output 01/13/19 01/14/19 01/14/19 22:59 06:59 14:59 Intake Total 50 Balance 50 Lciff Results Last 24 Hours: Microbiology 01/09/19 18:45 Aerobic Blood Culture - Preliminary Blood - Venous - Lab Draw NO GROWTH AFTER 4 DAYS Anaerobic Blood Culture - Preliminary NO GROWTH AFTER 4 DAYS 01/09/19 18:18 Aerobic Blood Culture - Preliminary Blood - Venous NO GROWTH AFTER 4 DAYS Anaerobic Blood Culture - Preliminary NO GROWTH AFTER 4 DAYS Med Orders - Current: Current Medications Albuterol (Proventil Neb Soln) 2.5 mg NEB Q2H PRN PRN Reason: Shortness of Breath Last Admin: 01/12/19 15:19 Dose: 2.5 mg Atorvastatin Calcium (Lipitor) 20 mg PO BEDTIME [facility] Last Admin: 01/13/19 20:49 Dose: 20 mg Bisacodyl (Dulcolax) 10 mg RECTAL Q72H PRN PRN Reason: Constipation Last Admin: 01/12/19 16:56 Dose: 10 mg Ceftriaxone Sodium (Rocephin) 1 gm IVPUSH Q24H [facility] Last Admin: 01/13/19 11:22 Dose: 1 gm Diltiazem HCl (Cardizem) 30 mg PO Q8H [facility] Last Admin: 01/14/19 09:20 Dose: 30 mg Dipyridamole/Aspirin (Aggrenox 200-25 Mg) 1 cap PO BID [facility] Last Admin: 01/14/19 08:42 Dose: 1 cap Gabapentin (Neurontin) 300 mg PO BID@08,17 [facility] Last Admin: 01/14/19 09:20 Dose: 300 mg Glycopyrrolate (Robinul) 0.5 mg PO TID@,, [facility] Last Admin: 01/14/19 08:41 Dose: 0.5 mg Clindamycin/Sodium Chloride (Cleocin In Ns) 600 mg in 50 mls @ 100 mls/hr IV Q8H [facility] Last Admin: 01/14/19 02:07 Dose: 100 mls/hr Sodium Chloride (Normal Saline) 250 mls @ 100 mls/hr IV ASDIRECTED [facility] Lactulose (Chronulac) 10 gm PO DAILY [facility] Last Admin: 01/14/19 08:42 Dose: 10 gm Latanoprost (Xalatan 0.005% Ophth Soln) 0 ml EYEBOTH BEDTIME [facility] Last Admin: 01/13/19 20:31 Dose: 1 drop Levetiracetam (Keppra) 500 mg PO BID [facility] Last Admin: 01/14/19 08:42 Dose: 500 mg Methylprednisolone Sodium Succinate (Solu-Medrol) 40 mg IVPUSH Q8H [facility] Last Admin: 01/14/19 02:07 Dose: 40 mg Ondansetron HCl (Zofran) 4 mg IV Q4H PRN PRN Reason: Nausea/Vomiting Sodium Chloride (Saline Flush) 10 ml FLUSH ASDIRECTED PRN PRN Reason: Keep Vein Open Last Admin: 01/14/19 02:20 Dose: 10 ml Discontinued Medications Albuterol/Ipratropium (Duoneb 3.0-0.5 Mg/3 Ml) 3 ml NEB ONETIME ONE Stop: 01/09/19 18:10 Last Admin: 01/09/19 18:20 Dose: 3 ml Clindamycin/Sodium Chloride (Cleocin In Ns) 600 mg in 50 mls @ 100 mls/hr IV Q8H [facility] Last Admin: 01/09/19 20:24 Dose: Not Given Clindamycin Phosphate 600 mg/ (Dextrose/Water) 54 mls @ 162 mls/hr IV Q8H [facility] Clindamycin Phosphate 600 mg/ (Sodium Chloride) 54 mls @ 162 mls/hr IV Q8H [facility] Stop: 01/09/19 21:00 Last Admin: 01/09/19 19:50 Dose: 162 mls/hr Clindamycin/Sodium Chloride (Cleocin In Ns) 600 mg in 50 mls @ 100 mls/hr IV Q8H [facility] Last Admin: 01/10/19 04:01 Dose: 100 mls/hr Sodium Chloride (Normal Saline) 1,000 mls @ 400 mls/hr IV ASDIRECTED [facility] - Exam General: Alert, Oriented Neck: Supple Lungs: Rhonchi Cardiovascular: Regular Rate - Problem List & Annotations (1) Aspiration pneumonia SNOMED Code(s): 005233044 Code(s): J69.0 - PNEUMONITIS DUE TO INHALATION OF FOOD AND VOMIT Status: Acute Current Visit: Yes Qualifiers: Laterality: unspecified laterality (2) Dysphagia SNOMED Code(s): 91682464, 576202277 Code(s): R13.10 - DYSPHAGIA, UNSPECIFIED Status: Acute Current Visit: Yes Qualifiers: Dysphagia type: unspecified Qualified Code(s): R13.10 - Dysphagia, unspecified - Problem List Review Problem List Initiated/Reviewed/Updated: Yes - Plan Plan:: [facility], on oral clindamycin. I attempted to inform the family and left a voicemail.
[2019-01-14] MEDS: cefTRIAXone 1 GM Vial IVPUSH SCH (11:18)
[2019-01-14 12:16] VITALS: BP 150/73
--- NOTE | 2019-01-17 09:38 | DISCH ---
DISCHARGE DATE: 01/14/2019 REASON FOR ADMISSION: Aspiration pneumonia. ADMISSION DIAGNOSIS: Aspiration pneumonia. SECONDARY DIAGNOSES: 1. Hyperlipidemia. 2. Mood disorder. 3. History of a stroke. 4. Dysphagia. BRIEF HISTORY AND HOSPITAL COURSE: This is an 88-year-old male, who was admitted through the ER with cough, hypoxia, and found to have pneumonia. He was treated with Rocephin and clindamycin. He had video swallow study that indicated that he could benefit from thickened liquid, which he does not like. On the day of discharge, he is not on oxygen. He appears well. I discharged him on oral clindamycin 300 mg p.o. t.i.d. to finish a week. I spent more than 35 minutes, and he was continued on his regular home medications back to the Nursing. /[id number] CRISTIANE/DAMARIS
== END 2019-01-14 12:40 | DRG 179 ==
LOC: FB.ED 17:54 → OBSVTOIN 19:10 → INTOOBSV 19:10 → FB.MS 19:10 → OBSVTOIN 01-10 11:21
PROVIDERS: ADMIT Family Medicine; ATTEND Family Medicine
DX: J69.0 Pneumonitis due to inhalation of food and vomit (principal); Z66 Do not resuscitate; R13.10 Dysphagia, unspecified; R06.02 Shortness of breath; R05 Cough; R09.02 Hypoxemia; I11.0 Hypertensive heart disease with heart failure; I50.9 Heart failure, unspecified; E78.5 Hyperlipidemia, unspecified; F32.9 Major depressive disorder, single episode, unspecified; Z86.73 Personal history of transient ischemic attack (TIA), and cerebral infarction without residual deficits; F39 Unspecified mood [affective] disorder; Z95.0 Presence of cardiac pacemaker; N42.9 Disorder of prostate, unspecified; M75.02 Adhesive capsulitis of left shoulder; H40.9 Unspecified glaucoma; H35.30 Unspecified macular degeneration; R56.9 Unspecified convulsions; Z79.82 Long term (current) use of aspirin; Z88.1 Allergy status to other antibiotic agents; Z91.040 Latex allergy status; Z88.0 Allergy status to penicillin; Z88.8 Allergy status to other drugs, medicaments and biological substances
CPT/HCPCS: 36415; 71045; 80048; 83605; 83880; 85025; 87040 ×2; 93005; 99285; J3490; J7050; S0077; 74230; 92611-GN; 93010; 93306; 94640; A9270-GY; J0696; J2920; J7620-GY

== ENCOUNTER 2019-01-21 13:41 | Inpatient (IN) | payer MEDICARE, OTHER, MEDICAID ==
[2019-01-21] MEDS ORDERED: Albuterol/Ipratropium 3.0-0.5 MG/3 ML Neb Soln NEB ONE (14:00)
--- NOTE | 2019-01-21 14:18 | EDM.PDOC ---
ED HPI GENERAL MEDICAL PROBLEM - General Stated Complaint: [facility] Time Seen by Provider: 01/21/19 13:45 Source of Information: Reports: Family, Custodial Records History Limitations: Reports: Physical Impairment (Patient cannot verbally communicate with me and therefore I can get none of the history from him.) - History of Present Illness INITIAL COMMENTS - FREE TEXT/NARRATIVE: 88-year-old male with history of recurrent aspiration pneumonias who presents from [facility]dc secondary to increased difficulty breathing with low O2 saturations and vomiting today. According to the , the patient began to complain of some abdominal discomfort on 01/18/2019 and she reports that this is sometimes how he begins when he has an aspiration pneumonia. Today he was noted by the fdc staff to have increased respiratory rate, noisy respiration , low O2 saturations and vomiting. He has also exhibited increasing weakness and poor appetite. No measured fever. He has voiced nor attempted to voice any complaints. He is unable to quantitate or qualitate pain. There are no other associated signs or symptoms. There are no other modifying factors. Onset: Other (01/18/2019 with acute worsening today with increased respiratory rate and congestion with low O2 saturations and vomiting) Duration: Getting Worse Location: Reports: Other (Not applicable) Quality: Reports: Other (Unknown but with increased respiratory effort) Severity: Moderate Improves with: Reports: None Worsens with: Reports: None Context: Reports: Other (Unknown) Associated Symptoms: Reports: Cough, Loss of Appetite, Nausea/Vomiting ( Vomiting 2 today), Shortness of Breath (Increased respiratory effort), Weakness Treatments [employer]: Reports: Other (see below) (Nothing) - Related Data Allergies Allergy/AdvReac Type Severity Reaction Status Date / Time bacitracin Allergy Rash Verified 01/21/19 16:28 [From Neosporin ([id number])] bacitracin zinc Allergy Rash Verified 01/21/19 16:28 [From Neosporin ([id number])] furosemide [From Lasix] Allergy Other Verified 01/21/19 16:28 latex Allergy Redness Verified 01/21/19 16:28 miconazole nitrate Allergy Rash Verified 01/21/19 16:28 [From Neosporin AF] neomycin sulfate Allergy Rash Verified 01/21/19 16:28 [From Neosporin ([id number])] Penicillins Allergy Swelling Verified 01/21/19 16:28 polymyxin B Allergy Rash Verified 01/21/19 16:28 [From Neosporin ([id number])] Home Meds: Home Meds Acetaminophen [Acetaminophen Extra Strength] 1,000 mg PO BEDTIME 12/08/13 [ History] Aspirin/Dipyridamole [Aggrenox 200-25 MG] 1 cap PO BID 12/08/13 [History] Sennosides/Docusate Sodium [Senna-S] 2 each PO BID 12/08/13 [History] Lactulose 15 ml PO DAILY 01/24/14 [History] Magnesium Hydroxide [Milk of Magnesia] 30 ml PO DAILY PRN 01/24/14 [History] Sertraline [Zoloft] 150 mg PO DAILY 01/24/14 [History] guaiFENesin/Codeine Phosphate [Guaifen-Codeine 100-10 mg/5 ml] 10 ml PO Q4H PRN 01/24/14 [History] Gabapentin [Neurontin] 300 mg PO BID@08,17 04/24/18 [History] Latanoprost [Xalatan 0.005% Ophth Soln] 1 drop EYEBOTH BEDTIME 04/24/18 [History ] Albuterol Sulfate 3 ml INH Q4H PRN 01/09/19 [History] Alendronate Sodium [Fosamax] 70 mg PO FR 01/09/19 [History] Bisacodyl [Dulcolax] 10 mg RECTAL Q72H PRN 01/09/19 [History] Loperamide [Imodium] 2 mg PO ASDIRECTED 01/09/19 [History] Nabumetone [Relafen] 500 mg PO DAILY 01/09/19 [History] atorvaSTATin [Lipitor] 20 mg PO BEDTIME 01/09/19 [History] levETIRAcetam [Keppra] 500 mg PO BID 01/09/19 [History] Acetaminophen [Tylenol] 650 mg PO Q4H PRN 01/10/19 [History] Glycopyrrolate [Robinul] 0.5 mg PO TID@08,14,20 01/10/19 [History] Propylene Glycol [Systane Balance] 1 drop EYEBOTH BID 01/10/19 [History] Clindamycin HCl 300 mg PO TID #21 capsule 01/14/19 [Rx] Past Medical History HEENT History: Reports: Glaucoma, Macular Degeneration Cardiovascular History: Reports: Heart Failure, High Cholesterol, Hypertension, Pacemaker Respiratory History: Reports: Pneumonia, Recurrent (Recurrent aspiration pneumonias) Gastrointestinal History: Reports: Other (See Below) Other Gastrointestinal History: nutritional deficincy Genitourinary History: Reports: Prostate Disorder, Urinary Incontinence Musculoskeletal History: Reports: Other (See Below) Other Musculoskeletal History: r hemiplegia, l shoulder frozen Neurological History: Reports: CVA (With right hemiparesis), Seizure Psychiatric History: Reports: Depression Hematologic History: Reports: Anemia Oncologic (Cancer) History: Reports: Prostate - Past Surgical History Cardiovascular Surgical History: Reports: Pacer Social & Family History - Family History Family Medical History: Unobtainable - Tobacco Use Smoking Status *Q: Unknown Ever Smoked (Nonsmoker) - Caffeine Use Caffeine Use: Reports: Coffee Caffeine Use Comment: Each morning - Alcohol Use Alcohol Use History: No Alcohol Use Comment: No current alcohol use - Living Situation & Occupation Living situation: Reports: Extended Care Facility (Resides at [facility]) Occupation: Retired Social History Comment: His is here with him in the emergency department now. ED ROS GENERAL - Review of Systems Review Of Systems: Unable To Obtain (The patient is not able to provide me with this information secondary to his debilitated condition and acute illness. Therefore, the review of systems is unobtainable area) ED EXAM, GENERAL - Physical Exam Exam: See Below Exam Limited By: No Limitations General Appearance: Alert, Moderate Distress (With increased respiratory rate and noisy respiration) Eye Exam: Bilateral Eye: EOMI Ears: Normal External Exam Nose: Normal Inspection, Normal Mucosa Throat/Mouth: Other (Dry mucous membranes) Head: Atraumatic, Normocephalic Neck: Normal Inspection, Supple, Non-Tender, Full Range of Motion Respiratory/Chest: Respiratory Distress, Rhonchi (Noisy respirations throughout with increased respiratory rate), Accessory Muscle Use (Some accessory muscle use) Cardiovascular: Normal Peripheral Pulses, Regular Rate, Rhythm, No JVD Peripheral Pulses: 2+: Radial (L), Radial (R) GI/Abdominal: Normal Bowel Sounds, Soft, Non-Tender, No Mass Extremities: Normal Inspection, Normal Capillary Refill Neurological: Alert, Other (Right hemiparesis which is chronic) Skin Exam: Warm, Dry, Intact, Normal Color EKG INTERPRETATION EKG Date: 01/21/19 Time: 14:42 Rhythm: NSR [place]: Normal P-Wave: Enlarged QRS: Normal ST-T: Other (Nonspecific ST-T changes) QT: Prolonged Comparison: NA - No Prior EKG Course - Orders/Labs/Meds Orders: Active Orders 24 hr Category Date Time Status Patient Status Manage Transfer [TRANSFER] Routine ADT 01/21/19 16:26 Active Antiembolic Devices [RC] .Routine Care 01/21/19 16:29 Active Communication Order [RC] ASDIRECTED Care 01/21/19 16:29 Active EKG Documentation Completion [RC] ASDIRECTED Care 01/21/19 13:58 Active Oxygen Therapy, ED [RC] ASDIRECTED Care 01/21/19 13:56 Active Pulse Oximetry [RC] PRN Care 01/21/19 16:29 Active RT Aerosol Therapy [RC] ASDIRECTED Care 01/21/19 14:00 Active Suction Nasopharyngeal (RT) [RT Suction Artificial Care 01/21/19 13:56 Active Airway] [RC] ASDIRECTED Up With Assistance [RC] ASDIRECTED Care 01/21/19 16:29 Active VTE/DVT Education [RC] Click to Edit Care 01/21/19 16:29 Active Vital Signs [RC] Q4H Care 01/21/19 16:29 Active Nothing per Oral Now Diet [DIET] Diet 01/21/19 Dinner Ordered CULTURE BLOOD [BC] Urgent Lab 01/21/19 14:30 Received CULTURE BLOOD [BC] Urgent Lab 01/21/19 14:40 Received VANCOMYCIN TROUGH [CHEM] Timed Lab 01/24/19 16:30 Ordered Pharmacy to Dose - Vancomycin Med 01/21/19 16:30 Pending 1 dose .XX ASDIRECTED Sodium Chloride 0.9% [Normal Saline] 1,000 ml Med 01/21/19 16:30 Active IV ASDIRECTED Sodium Chloride 0.9% [Saline Flush] Med 01/21/19 13:56 Active 10 ml FLUSH ASDIRECTED PRN Vancomycin 1 gm Med 01/21/19 17:00 Active Vancomycin 750 mg Sodium Chloride 0.9% [Normal Saline] 500 ml IV ONETIME Vancomycin 500 mg Med 01/22/19 17:00 Active Vancomycin 750 mg Sodium Chloride 0.9% [Normal Saline] 250 ml IV Q24H Blood Culture x2 Reflex Set [OM.PC] Urgent Oth 01/21/19 13:56 Ordered DVT/VTE Prophylaxis Reflex [OM.PC] Per Unit Routine Oth 01/21/19 16:29 Ordered Peripheral IV Insertion Adult [OM.PC] Routine Oth 01/21/19 13:56 Ordered Resuscitation Status Routine Resus Stat 01/21/19 16:29 Ordered EKG 12 Lead [EK] Routine Ther 01/21/19 13:56 Ordered Medication Orders Vancomycin HCl 1 gm/Vancomycin HCl 750 mg/ Sodium Chloride 500 mls @ 250 mls/ hr IV ONETIME ONE Stop: 01/21/19 18:59 Vancomycin HCl 500 mg/Vancomycin HCl 750 mg/ Sodium Chloride 250 mls @ 167 mls/ hr IV Q24H [facility] Sodium Chloride (Normal Saline) 1,000 mls @ 100 mls/hr IV ASDIRECTED [facility] Sodium Chloride (Saline Flush) 10 ml FLUSH ASDIRECTED PRN PRN Reason: Keep Vein Open Last Admin: 01/21/19 16:10 Dose: 10 ml Vancomycin HCl (Pharmacy To Dose - Vancomycin) 1 dose .XX ASDIRECTED [facility] Labs: Laboratory Tests 01/21/19 01/21/19 01/21/19 Range/Units 14:40 14:40 14:40 WBC 25.0 H (4.5-12.0) X10-3/uL RBC 4.92 (4.30-5.75) x10(6)uL Hgb 14.4 (13.5-17.8) g/dL Hct 43.3 (30.0-51.3) % MCV 88.0 (80-96) fL MCH 29.2 (27.7-33.6) pg MCHC 33.1 (32.2-35.4) g/dL RDW 15.5 (11.5-15.5) % Plt Count 322 (125-369) X10(3)uL MPV 8.1 (7.4-10.4) fL Add Manual Diff Yes Neutrophils % (Manual) 86 H (46-82) % Band Neutrophils % 7 H (0-6) % Lymphocytes % (Manual) 3 L (13-37) % Monocytes % (Manual) 4 (4-12) % PT 9.9 (8.7-11.1) INR 1.02 (0.89-1.13) D-Dimer, Quantitative (0.0-0.59) mg/LFEU POC VBG pH (7.31-7.41) POC VBG pCO2 (41-51) mmHG POC VBG HCO3 (23-28) mmol/L POC VBG Total CO2 (24-29) mmol/L POC VBG Base Excess (-2-3) mmol/L Sodium 147 H (135-145) mmol/L Potassium 4.1 (3.5-5.3) mmol/L Chloride 108 (100-110) mmol/L Carbon Dioxide 28 (21-32) mmol/L BUN 36 H (7-18) mg/dL Creatinine 1.5 H (0.70-1.30) mg/dL Est Cr Clr Drug Dosing TNP Estimated GFR (MDRD) 44 L (>60) BUN/Creatinine Ratio 24.0 H (9-20) Glucose 134 H (80-116) mg/dL Lactic Acid (0.4-2.2) mmol/L Calcium 9.8 (8.6-10.2) mg/dL Total Bilirubin 0.7 (0.1-1.3) mg/dL AST 15 (5-25) IU/L ALT 21 D (12-36) U/L Alkaline Phosphatase 67 (56-112) IU/L Troponin I (<0.017-0.056) ng/mL C-Reactive Protein (0.5-0.9) mg/dL NT-Pro-B Natriuret Pep (<=450) pg/mL Total Protein 8.0 (6.0-8.0) g/dL Albumin 3.6 (3.2-4.6) g/dL Globulin 4.4 g/dL Albumin/Globulin Ratio 0.8 01/21/19 01/21/19 01/21/19 Range/Units 14:40 14:40 14:40 WBC (4.5-12.0) X10-3/uL RBC (4.30-5.75) x10(6)uL Hgb (13.5-17.8) g/dL Hct (30.0-51.3) % MCV (80-96) fL MCH (27.7-33.6) pg MCHC (32.2-35.4) g/dL RDW (11.5-15.5) % Plt Count (125-369) X10(3)uL MPV (7.4-10.4) fL Add Manual Diff Neutrophils % (Manual) (46-82) % Band Neutrophils % (0-6) % Lymphocytes % (Manual) (13-37) % Monocytes % (Manual) (4-12) % PT (8.7-11.1) INR (0.89-1.13) D-Dimer, Quantitative (0.0-0.59) mg/LFEU POC VBG pH (7.31-7.41) POC VBG pCO2 (41-51) mmHG POC VBG HCO3 (23-28) mmol/L POC VBG Total CO2 (24-29) mmol/L POC VBG Base Excess (-2-3) mmol/L Sodium (135-145) mmol/L Potassium (3.5-5.3) mmol/L Chloride (100-110) mmol/L Carbon Dioxide (21-32) mmol/L BUN (7-18) mg/dL Creatinine (0.70-1.30) mg/dL Est Cr Clr Drug Dosing Estimated GFR (MDRD) (>60) BUN/Creatinine Ratio (9-20) Glucose (80-116) mg/dL Lactic Acid 1.8 (0.4-2.2) mmol/L Calcium (8.6-10.2) mg/dL Total Bilirubin (0.1-1.3) mg/dL AST (5-25) IU/L ALT (12-36) U/L Alkaline Phosphatase (56-112) IU/L Troponin I 0.028 (<0.017-0.056) ng/mL C-Reactive Protein 5.4 H* (0.5-0.9) mg/dL NT-Pro-B Natriuret Pep 1376 H* (<=450) pg/mL Total Protein (6.0-8.0) g/dL Albumin (3.2-4.6) g/dL Globulin g/dL Albumin/Globulin Ratio 01/21/19 01/21/19 Range/Units 14:48 16:01 WBC (4.5-12.0) X10-3/uL RBC (4.30-5.75) x10(6)uL Hgb (13.5-17.8) g/dL Hct (30.0-51.3) % MCV (80-96) fL MCH (27.7-33.6) pg MCHC (32.2-35.4) g/dL RDW (11.5-15.5) % Plt Count (125-369) X10(3)uL MPV (7.4-10.4) fL Add Manual Diff Neutrophils % (Manual) (46-82) % Band Neutrophils % (0-6) % Lymphocytes % (Manual) (13-37) % Monocytes % (Manual) (4-12) % PT (8.7-11.1) INR (0.89-1.13) D-Dimer, Quantitative 2.23 H (0.0-0.59) mg/LFEU POC VBG pH 7.37 (7.31-7.41) POC VBG pCO2 46.3 (41-51) mmHG POC VBG HCO3 26.5 (23-28) mmol/L POC VBG Total CO2 28 (24-29) mmol/L POC VBG Base Excess 1 (-2-3) mmol/L Sodium (135-145) mmol/L Potassium (3.5-5.3) mmol/L Chloride (100-110) mmol/L Carbon Dioxide (21-32) mmol/L BUN (7-18) mg/dL Creatinine (0.70-1.30) mg/dL Est Cr Clr Drug Dosing Estimated GFR (MDRD) (>60) BUN/Creatinine Ratio (9-20) Glucose (80-116) mg/dL Lactic Acid (0.4-2.2) mmol/L Calcium (8.6-10.2) mg/dL Total Bilirubin (0.1-1.3) mg/dL AST (5-25) IU/L ALT (12-36) U/L Alkaline Phosphatase (56-112) IU/L Troponin I (<0.017-0.056) ng/mL C-Reactive Protein (0.5-0.9) mg/dL NT-Pro-B Natriuret Pep (<=450) pg/mL Total Protein (6.0-8.0) g/dL Albumin (3.2-4.6) g/dL Globulin g/dL Albumin/Globulin Ratio Meds: Medications Generic Name Dose Route Start Last Admin Trade Name Freq PRN Reason Stop Dose Admin Vancomycin HCl 1 gm/ 500 mls @ 250 mls/hr 01/21/19 17:00 Vancomycin HCl 750 mg/ Sodium IV 01/21/19 18:59 Chloride ONETIME ONE Vancomycin HCl 500 mg/ 250 mls @ 167 mls/hr 01/22/19 17:00 Vancomycin HCl 750 mg/ Sodium IV Chloride Q24H [facility] Sodium Chloride 1,000 mls @ 100 mls/hr 01/21/19 16:30 Normal Saline IV ASDIRECTED [facility] Sodium Chloride 10 ml 01/21/19 13:56 01/21/19 16:10 Saline Flush FLUSH 10 ml ASDIRECTED PRN Administration Keep Vein Open Vancomycin HCl 1 dose 01/21/19 16:30 Pharmacy To Dose - Vancomycin .XX ASDIRECTED [facility] Discontinued Medications Generic Name Dose Route Start Last Admin Trade Name Freq PRN Reason Stop Dose Admin Albuterol/Ipratropium 3 ml 01/21/19 14:00 01/21/19 14:22 Duoneb 3.0-0.5 Mg/3 Ml NEB 01/21/19 14:01 3 ml ONETIME ONE Administration Ceftriaxone Sodium 1 gm 01/21/19 16:03 01/21/19 16:10 Rocephin IVPUSH 01/21/19 16:04 1 gm ONETIME ONE Administration - Radiology Interpretation Free Text/Narrative:: Chest x-ray shows bibasilar infiltrates. - Re-Assessments/Exams Free Text/Narrative Re-Assessment/Exam: 01/21/19 15:55: Patient's breathing pattern appears much improved after nasotracheal suctioning. He still has O2 saturations in the mid 80s on room air and is requiring 3-4 L/m via nasal cannula to keep him at 92-93%. He appears to be more bright and more responsive. His chest x-ray accompanied with his history and the signs and symptoms today is consistent with recurrent aspiration pneumonia. He is in respiratory failure related to this. He will need admission for IV antibiotics, pulmonary toilet and nebulizer treatments. This plan of care cannot be accomplished as an outpatient. The plan of care will require at least a 2 midnight hospital stay. I discussed this with Dr. Bucio and he has agreed to admit the patient. The patient's is in agreement with the plans for admission. I have added a d-dimer to the patient's labs per Dr. Bucio's request. I have placed interim admission orders and Dr. Bucio will see the patient shortly in the hospital. Departure - Departure Time of Disposition: 16:30 Disposition: Admitted As Inpatient 67 Condition: Fair Clinical Impression: Recurrent aspiration pneumonia Respiratory failure with hypoxia Qualifiers: Chronicity: acute Qualified Code(s): J96.01 - Acute respiratory failure with hypoxia - Discharge Information Referrals: Victoriano Licea MD [Primary Care Provider] - - My Orders Last 24 Hours: My Active Orders 01/21/19 13:56 Oxygen Therapy, ED [RC] ASDIRECTED Suction Nasopharyngeal (RT) [RT Suction Artificial Airway] [RC] ASDIRECTED Sodium Chloride 0.9% [Saline Flush] 10 ml FLUSH ASDIRECTED PRN Blood Culture x2 Reflex Set [OM.PC] Urgent Peripheral IV Insertion Adult [OM.PC] Routine EKG 12 Lead [EK] Routine 01/21/19 13:58 EKG Documentation Completion [RC] ASDIRECTED 01/21/19 14:00 RT Aerosol Therapy [RC] ASDIRECTED 01/21/19 14:30 CULTURE BLOOD [BC] Urgent 01/21/19 14:40 CULTURE BLOOD [BC] Urgent 01/21/19 16:26 Patient Status Manage Transfer [TRANSFER] Routine 01/21/19 16:29 Antiembolic Devices [RC] .Routine Communication Order [RC] ASDIRECTED Pulse Oximetry [RC] PRN Up With Assistance [RC] ASDIRECTED VTE/DVT Education [RC] Click to Edit Vital Signs [RC] Q4H DVT/VTE Prophylaxis Reflex [OM.PC] Per Unit Routine Resuscitation Status Routine 01/21/19 16:30 Pharmacy to Dose - Vancomycin 1 dose .XX ASDIRECTED Sodium Chloride 0.9% [Normal Saline] 1,000 ml IV ASDIRECTED 01/21/19 17:00 Vancomycin 1 gm Vancomycin 750 mg Sodium Chloride 0.9% [Normal Saline] 500 ml IV ONETIME 01/21/19 Dinner Nothing per Oral Now Diet [DIET] 01/22/19 17:00 Vancomycin 500 mg Vancomycin 750 mg Sodium Chloride 0.9% [Normal Saline] 250 ml IV Q24H 01/24/19 16:30 VANCOMYCIN TROUGH [CHEM] Timed - Assessment/Plan Last 24 Hours: My Active Orders 01/21/19 13:56 Oxygen Therapy, ED [RC] ASDIRECTED Suction Nasopharyngeal (RT) [RT Suction Artificial Airway] [RC] ASDIRECTED Sodium Chloride 0.9% [Saline Flush] 10 ml FLUSH ASDIRECTED PRN Blood Culture x2 Reflex Set [OM.PC] Urgent Peripheral IV Insertion Adult [OM.PC] Routine EKG 12 Lead [EK] Routine 01/21/19 13:58 EKG Documentation Completion [RC] ASDIRECTED 01/21/19 14:00 RT Aerosol Therapy [RC] ASDIRECTED 01/21/19 14:30 CULTURE BLOOD [BC] Urgent 01/21/19 14:40 CULTURE BLOOD [BC] Urgent 01/21/19 16:26 Patient Status Manage Transfer [TRANSFER] Routine 01/21/19 16:29 Antiembolic Devices [RC] .Routine Communication Order [RC] ASDIRECTED Pulse Oximetry [RC] PRN Up With Assistance [RC] ASDIRECTED VTE/DVT Education [RC] Click to Edit Vital Signs [RC] Q4H DVT/VTE Prophylaxis Reflex [OM.PC] Per Unit Routine Resuscitation Status Routine 01/21/19 16:30 Pharmacy to Dose - Vancomycin 1 dose .XX ASDIRECTED Sodium Chloride 0.9% [Normal Saline] 1,000 ml IV ASDIRECTED 01/21/19 17:00 Vancomycin 1 gm Vancomycin 750 mg Sodium Chloride 0.9% [Normal Saline] 500 ml IV ONETIME 01/21/19 Dinner Nothing per Oral Now Diet [DIET] 01/22/19 17:00 Vancomycin 500 mg Vancomycin 750 mg Sodium Chloride 0.9% [Normal Saline] 250 ml IV Q24H 01/24/19 16:30 VANCOMYCIN TROUGH [CHEM] Timed
--- NOTE | 2019-01-21 15:19 | CR ---
INDICATION: Shortness of breath, low oxygen saturation. CHEST: AP and two lateral views of the chest were obtained 01/21/19 and compared with 01/13/19 and 01/11/19. Heavy markings are noted at the lung bases posteriorly, which may represent bibasilar patchy pneumonia and possibly on the left pleuritis, since the posterior sulcus appears to be slightly blunted. The upper lung smith appeared relatively normal. Pulmonary vasculature appears slightly less prominent than on the previous study, suggesting early resolving CHF. The heart remains somewhat enlarged in appearance with a unipolar pacemaker and lead unchanged in position from the left subclavian. IMPRESSION: 1. Little interval change suggested, compared with 01/13/19. Fibrosis and/or patchy pneumonia at the lung bases, possibly pleuritis on the left. 2. Probable resolving mild CHF. MTDD
[2019-01-21] MEDS ORDERED: Lidocaine 1% PF 2 ML SDV INFILT ONE (15:40)
[2019-01-21] MEDS ORDERED: cefTRIAXone 1 GM Vial IVPUSH ONE (16:03)
[2019-01-21] MEDS: Sodium Chloride 0.9% 10 ML Syringe FLUSH PRN (16:10)
--- NOTE | 2019-01-21 16:13 | PCM.SN ---
- Free Text/Narrative Note: ANESTHESIA SERVICE Date: 01/21/2019 Time: 1535 to 1551 RE: Poor IV Access I was called by the ED physician to establish IV access for IV antibiotics. Upon arrival, I found the patient with numerous IV insertion attempts. I found a vein in the left ACF region and prepped the area with an alcohol wipe X 3 and allowed to dry. I infiltrated the site with .75 ml's of 1% Lidocaine plain. I inserted a 20 Ga 1.25 inch Jelco IV X 1 attempt with great blood return. I flushed it with 10 ml's of normal saline and place an OP-Site dressing on. He tolerated this insertion well. Thank you JOSE Redman CRNA
[2019-01-21] MEDS ORDERED: Vancomycin 1 GM, Vancomycin 750 MG in Sodium Chloride 0.9% 500 ML IV ONE (17:00)
[2019-01-21] MEDS ORDERED: Vancomycin 1 GM SDV IV SCH (17:00)
[2019-01-21] MEDS: Sodium Chloride 0.9% 1,000 ML IV SCH (17:04)
[2019-01-21] MEDS ORDERED: Bisacodyl 10 MG Supp RECTAL PRN (17:51)
[2019-01-21] MEDS ORDERED: Acetaminophen 325 MG Tab PO PRN (17:51)
[2019-01-21] MEDS ORDERED: Magnesium Hydroxide 400 MG/5 ML Susp 30 ML Cup PO PRN (17:51)
[2019-01-21] MEDS ORDERED: GUAIFENESIN 100 MG/5 ML PO PRN (17:51)
--- NOTE | 2019-01-21 17:51 | PCM.HP ---
H&P History of Present Illness - General Date of Service: 01/21/19 Admit Problem/Dx: Admission Diagnosis/Problem Admission Diagnosis/Problem Aspiration pneumonia Source of Information: Patient, Family History Limitations: Reports: Other (Patient is a phasic secondary to old stroke ) - History of Present Illness Initial Comments - Free Text/Narative: This is an 88-year-old male patient who is a resident of 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 He was in the hospital over week ago with aspiration pneumonia was sent home on clindamycin. He started getting short of breath, wheezing and vomited twice in the senior living. He was sent to the hospital and diagnosed with reoccurring aspiration pneumonia and admitted. He denies fevers, chills. The information I get his rate had not and from his . He was aspirating the ER and suctioned which did help. I'm not able to get any other history from him at this time. - Related Data Allergies/Adverse Reactions: Allergies Allergy/AdvReac Type Severity Reaction Status Date / Time bacitracin Allergy Rash Verified 01/21/19 16:28 [From Neosporin ([id number])] bacitracin zinc Allergy Rash Verified 01/21/19 16:28 [From Neosporin ([id number])] furosemide [From Lasix] Allergy Other Verified 01/21/19 16:28 latex Allergy Redness Verified 01/21/19 16:28 miconazole nitrate Allergy Rash Verified 01/21/19 16:28 [From Neosporin AF] neomycin sulfate Allergy Rash Verified 01/21/19 16:28 [From Neosporin ([id number])] Penicillins Allergy Swelling Verified 01/21/19 16:28 polymyxin B Allergy Rash Verified 01/21/19 16:28 [From Neosporin ([id number])] Home Medications: Home Meds Acetaminophen [Acetaminophen Extra Strength] 1,000 mg PO BEDTIME 12/08/13 [ History] Aspirin/Dipyridamole [Aggrenox 200-25 MG] 1 cap PO BID 12/08/13 [History] Sennosides/Docusate Sodium [Senna-S] 2 each PO BID 12/08/13 [History] Lactulose 15 ml PO DAILY 01/24/14 [History] Magnesium Hydroxide [Milk of Magnesia] 30 ml PO DAILY PRN 01/24/14 [History] Sertraline [Zoloft] 150 mg PO DAILY 01/24/14 [History] Gabapentin [Neurontin] 300 mg PO BID@08,17 04/24/18 [History] Latanoprost [Xalatan 0.005% Ophth Soln] 1 drop EYEBOTH BEDTIME 04/24/18 [History ] Albuterol Sulfate 3 ml INH Q4H PRN 01/09/19 [History] Alendronate Sodium [Fosamax] 70 mg PO FR 01/09/19 [History] Bisacodyl [Dulcolax] 10 mg RECTAL Q72H PRN 01/09/19 [History] Loperamide [Imodium] 2 mg PO ASDIRECTED 01/09/19 [History] Nabumetone [Relafen] 500 mg PO DAILY 01/09/19 [History] atorvaSTATin [Lipitor] 20 mg PO BEDTIME 01/09/19 [History] levETIRAcetam [Keppra] 500 mg PO BID 01/09/19 [History] Acetaminophen [Tylenol] 650 mg PO Q4H PRN 01/10/19 [History] Glycopyrrolate [Robinul] 0.5 mg PO TID@08,14,20 01/10/19 [History] Propylene Glycol [Systane Balance] 1 drop EYEBOTH BID 01/10/19 [History] Clindamycin HCl 300 mg PO TID #21 capsule 01/14/19 [Rx] guaiFENesin [Robitussin] 10 ml PO Q4H PRN 01/21/19 [History] Past Medical History HEENT History: Reports: Glaucoma, Macular Degeneration Cardiovascular History: Reports: Heart Failure, High Cholesterol, Hypertension, Pacemaker Respiratory History: Reports: Pneumonia, Recurrent (Recurrent aspiration pneumonias) Gastrointestinal History: Reports: Other (See Below) Other Gastrointestinal History: nutritional deficincy Genitourinary History: Reports: Prostate Disorder, Urinary Incontinence Musculoskeletal History: Reports: Other (See Below) Other Musculoskeletal History: r hemiplegia, l shoulder frozen Neurological History: Reports: CVA (With right hemiparesis), Seizure Other Neuro History: convulsions Psychiatric History: Reports: Depression Hematologic History: Reports: Anemia Oncologic (Cancer) History: Reports: Prostate - Past Surgical History Cardiovascular Surgical History: Reports: Pacer Social & Family History - Family History Family Medical History: Unobtainable - Tobacco Use Smoking Status *Q: Unknown Ever Smoked (Nonsmoker) - Caffeine Use Caffeine Use: Reports: Coffee Caffeine Use Comment: Each morning - Living Situation & Occupation Living situation: Reports: Extended Care Facility (Resides at [facility]) Occupation: Retired H&P Review of Systems - Review of Systems: Review Of Systems: Unable To Obtain (Secondary to aphasia. Is able to get some information from his .) Exam - Exam Exam: See Below - Vital Signs Vital Signs: Last Vital Signs Temp 98.2 F 01/21/19 16:45 Pulse 45 L 01/21/19 16:45 Resp 22 H 01/21/19 16:45 BP 165/94 H 01/21/19 16:45 Pulse Ox 93 L 01/21/19 16:45 Weight: 189 lb 8 oz - Exam General: Alert, Oriented, Cooperative HEENT: Hearing Intact (With hearing aid), Mucosa Moist & [place], TMs Clear Neck: Supple, Trachea Midline. No: Lymphadenopathy, Carotid Bruit Lungs: Normal Respiratory Effort, Decreased Breath Sounds Cardiovascular: Regular Rate, Regular Rhythm. No: Systolic Murmur, Diastolic Murmur GI/Abdominal Exam: Normal Bowel Sounds, Soft, Non-Tender, No Organomegaly, No Distention Extremities: No Pedal Edema, Other (Weakness right arm and leg. Patient's wheelchair-bound.) Skin: Warm, Dry, Intact Neurological: No: Normal Gait, Normal Speech Neuro Extensive - Mental Status: Alert, Oriented x3, Normal Cognition Neuro Extensive - Motor, Sensory, Reflexes: No: Normal Gait Psychiatric: Alert, Other (Affect is blunted) - Patient Data Lab Results Last 24 hrs: Laboratory Results - last 24 hr 01/21/19 01/21/19 01/21/19 Range/Units 14:40 14:40 14:40 WBC 25.0 H (4.5-12.0) X10-3/uL RBC 4.92 (4.30-5.75) x10(6)uL Hgb 14.4 (13.5-17.8) g/dL Hct 43.3 (30.0-51.3) % MCV 88.0 (80-96) fL MCH 29.2 (27.7-33.6) pg MCHC 33.1 (32.2-35.4) g/dL RDW 15.5 (11.5-15.5) % Plt Count 322 (125-369) X10(3)uL MPV 8.1 (7.4-10.4) fL Add Manual Diff Yes Neutrophils % (Manual) 86 H (46-82) % Band Neutrophils % 7 H (0-6) % Lymphocytes % (Manual) 3 L (13-37) % Monocytes % (Manual) 4 (4-12) % PT 9.9 (8.7-11.1) INR 1.02 (0.89-1.13) D-Dimer, Quantitative (0.0-0.59) mg/LFEU POC VBG pH (7.31-7.41) POC VBG pCO2 (41-51) mmHG POC VBG HCO3 (23-28) mmol/L POC VBG Total CO2 (24-29) mmol/L POC VBG Base Excess (-2-3) mmol/L Sodium 147 H (135-145) mmol/L Potassium 4.1 (3.5-5.3) mmol/L Chloride 108 (100-110) mmol/L Carbon Dioxide 28 (21-32) mmol/L BUN 36 H (7-18) mg/dL Creatinine 1.5 H (0.70-1.30) mg/dL Est Cr Clr Drug Dosing TNP Estimated GFR (MDRD) 44 L (>60) BUN/Creatinine Ratio 24.0 H (9-20) Glucose 134 H (80-116) mg/dL Lactic Acid (0.4-2.2) mmol/L Calcium 9.8 (8.6-10.2) mg/dL Total Bilirubin 0.7 (0.1-1.3) mg/dL AST 15 (5-25) IU/L ALT 21 D (12-36) U/L Alkaline Phosphatase 67 (56-112) IU/L Troponin I (<0.017-0.056) ng/mL C-Reactive Protein (0.5-0.9) mg/dL NT-Pro-B Natriuret Pep (<=450) pg/mL Total Protein 8.0 (6.0-8.0) g/dL Albumin 3.6 (3.2-4.6) g/dL Globulin 4.4 g/dL Albumin/Globulin Ratio 0.8 01/21/19 01/21/19 01/21/19 Range/Units 14:40 14:40 14:40 WBC (4.5-12.0) X10-3/uL RBC (4.30-5.75) x10(6)uL Hgb (13.5-17.8) g/dL Hct (30.0-51.3) % MCV (80-96) fL MCH (27.7-33.6) pg MCHC (32.2-35.4) g/dL RDW (11.5-15.5) % Plt Count (125-369) X10(3)uL MPV (7.4-10.4) fL Add Manual Diff Neutrophils % (Manual) (46-82) % Band Neutrophils % (0-6) % Lymphocytes % (Manual) (13-37) % Monocytes % (Manual) (4-12) % PT (8.7-11.1) INR (0.89-1.13) D-Dimer, Quantitative (0.0-0.59) mg/LFEU POC VBG pH (7.31-7.41) POC VBG pCO2 (41-51) mmHG POC VBG HCO3 (23-28) mmol/L POC VBG Total CO2 (24-29) mmol/L POC VBG Base Excess (-2-3) mmol/L Sodium (135-145) mmol/L Potassium (3.5-5.3) mmol/L Chloride (100-110) mmol/L Carbon Dioxide (21-32) mmol/L BUN (7-18) mg/dL Creatinine (0.70-1.30) mg/dL Est Cr Clr Drug Dosing Estimated GFR (MDRD) (>60) BUN/Creatinine Ratio (9-20) Glucose (80-116) mg/dL Lactic Acid 1.8 (0.4-2.2) mmol/L Calcium (8.6-10.2) mg/dL Total Bilirubin (0.1-1.3) mg/dL AST (5-25) IU/L ALT (12-36) U/L Alkaline Phosphatase (56-112) IU/L Troponin I 0.028 (<0.017-0.056) ng/mL C-Reactive Protein 5.4 H* (0.5-0.9) mg/dL NT-Pro-B Natriuret Pep 1376 H* (<=450) pg/mL Total Protein (6.0-8.0) g/dL Albumin (3.2-4.6) g/dL Globulin g/dL Albumin/Globulin Ratio 01/21/19 01/21/19 Range/Units 14:48 16:01 WBC (4.5-12.0) X10-3/uL RBC (4.30-5.75) x10(6)uL Hgb (13.5-17.8) g/dL Hct (30.0-51.3) % MCV (80-96) fL MCH (27.7-33.6) pg MCHC (32.2-35.4) g/dL RDW (11.5-15.5) % Plt Count (125-369) X10(3)uL MPV (7.4-10.4) fL Add Manual Diff Neutrophils % (Manual) (46-82) % Band Neutrophils % (0-6) % Lymphocytes % (Manual) (13-37) % Monocytes % (Manual) (4-12) % PT (8.7-11.1) INR (0.89-1.13) D-Dimer, Quantitative 2.23 H (0.0-0.59) mg/LFEU POC VBG pH 7.37 (7.31-7.41) POC VBG pCO2 46.3 (41-51) mmHG POC VBG HCO3 26.5 (23-28) mmol/L POC VBG Total CO2 28 (24-29) mmol/L POC VBG Base Excess 1 (-2-3) mmol/L Sodium (135-145) mmol/L Potassium (3.5-5.3) mmol/L Chloride (100-110) mmol/L Carbon Dioxide (21-32) mmol/L BUN (7-18) mg/dL Creatinine (0.70-1.30) mg/dL Est Cr Clr Drug Dosing Estimated GFR (MDRD) (>60) BUN/Creatinine Ratio (9-20) Glucose (80-116) mg/dL Lactic Acid (0.4-2.2) mmol/L Calcium (8.6-10.2) mg/dL Total Bilirubin (0.1-1.3) mg/dL AST (5-25) IU/L ALT (12-36) U/L Alkaline Phosphatase (56-112) IU/L Troponin I (<0.017-0.056) ng/mL C-Reactive Protein (0.5-0.9) mg/dL NT-Pro-B Natriuret Pep (<=450) pg/mL Total Protein (6.0-8.0) g/dL Albumin (3.2-4.6) g/dL Globulin g/dL Albumin/Globulin Ratio Result Diagrams: 01/21/19 14:40 01/21/19 14:40 - Problem List (1) Palliative care status SNOMED Code(s): 155045590 ICD Code: Z51.5 - ENCOUNTER FOR PALLIATIVE CARE Status: Acute Current Visit: Yes (2) Recurrent aspiration pneumonia SNOMED Code(s): 760365929 ICD Code: J69.0 - PNEUMONITIS DUE TO INHALATION OF FOOD AND VOMIT Status: Acute Current Visit: Yes (3) Respiratory failure with hypoxia SNOMED Code(s): 94692172861801329 ICD Code: J96.91 - RESPIRATORY FAILURE, UNSPECIFIED WITH HYPOXIA Status: Acute Current Visit: Yes Qualifiers: Chronicity: acute Qualified Code(s): J96.01 - Acute respiratory failure with hypoxia (4) Dysphagia SNOMED Code(s): 43447595, 563726226 ICD Code: R13.10 - DYSPHAGIA, UNSPECIFIED Status: Acute Current Visit: No Qualifiers: Dysphagia type: unspecified Qualified Code(s): R13.10 - Dysphagia, unspecified Problem List Initiated/Reviewed/Updated: Yes Orders Last 24hrs: Active Orders 24 hr Category Date Time Status Antiembolic Devices [RC] .Routine Care 01/21/19 16:29 Active Communication Order [RC] ASDIRECTED Care 01/21/19 16:29 Active Pulse Oximetry [RC] PRN Care 01/21/19 16:29 Active Telemetry Monitoring [Cardiac Monitoring] [RC] .As Care 01/21/19 17:27 Inactive Directed Up With Assistance [RC] ASDIRECTED Care 01/21/19 16:29 Active VTE/DVT Education [RC] Click to Edit Care 01/21/19 16:29 Active Vital Signs [RC] 00,04,08,12,16,20 Care 01/21/19 16:29 Active Nothing per Oral Now Diet [DIET] Diet 01/21/19 Dinner Ordered CULTURE BLOOD [BC] Urgent Lab 01/21/19 14:30 Received CULTURE BLOOD [BC] Urgent Lab 01/21/19 14:40 Received VANCOMYCIN TROUGH [CHEM] Timed Lab 01/24/19 16:30 Ordered Pharmacy to Dose - Vancomycin Med 01/21/19 16:30 Pending 1 dose .XX ASDIRECTED Sodium Chloride 0.9% [Normal Saline] 1,000 ml Med 01/21/19 16:30 Active IV ASDIRECTED Sodium Chloride 0.9% [Saline Flush] Med 01/21/19 13:56 Active 10 ml FLUSH ASDIRECTED PRN Vancomycin 1 gm Med 01/21/19 17:00 Active Vancomycin 750 mg Sodium Chloride 0.9% [Normal Saline] 500 ml IV ONETIME Vancomycin 500 mg Med 01/22/19 17:00 Active Vancomycin 750 mg Sodium Chloride 0.9% [Normal Saline] 250 ml IV Q24H DVT/VTE Prophylaxis Reflex [OM.PC] Per Unit Routine Oth 01/21/19 16:29 Ordered Peripheral IV Insertion Adult [OM.PC] Routine Oth 01/21/19 13:56 Ordered Resuscitation Status Routine Resus Stat 01/21/19 16:29 Ordered EKG 12 Lead [EK] Routine Ther 01/21/19 13:56 Stop Req Medication Orders Vancomycin HCl 1 gm/Vancomycin HCl 750 mg/ Sodium Chloride 500 mls @ 250 mls/ hr IV ONETIME ONE Stop: 01/21/19 18:59 Last Admin: 01/21/19 17:07 Dose: 250 mls/hr Vancomycin HCl 500 mg/Vancomycin HCl 750 mg/ Sodium Chloride 250 mls @ 167 mls/ hr IV Q24H ASHVIN Sodium Chloride (Normal Saline) 1,000 mls @ 100 mls/hr IV ASDIRECTED ASHVIN Last Admin: 01/21/19 17:04 Dose: 100 mls/hr Sodium Chloride (Saline Flush) 10 ml FLUSH ASDIRECTED PRN PRN Reason: Keep Vein Open Last Admin: 01/21/19 16:10 Dose: 10 ml Vancomycin HCl (Pharmacy To Dose - Vancomycin) 1 dose .XX ASDIRECTED ASHVIN Assessment/Plan Comment:: 1. Admit to inpatient. 2. Patient's a DNR per him and his . 3. IV antibiotics with Rocephin and metronidazole. Stop vancomycin. 4. Oxygen, up in chair when necessary. 5. IV fluids and nothing by mouth. 6. I will allow him to use some his home meds.
[2019-01-21] MEDS ORDERED: metroNIDAZOLE/Normal Saline 500 MG in Premix Bag 1 BAG IV SCH (18:00)
[2019-01-21] MEDS ORDERED: Loperamide 2 MG Cap PO SCH (18:00)
[2019-01-21] MEDS: Enoxaparin 30 MG/0.3 ML Syringe SUBCUT SCH (18:48)
[2019-01-21] MEDS: metroNIDAZOLE/Normal Saline 500 MG in Premix Bag 1 BAG IV SCH (21:19)
[2019-01-21] MEDS: Albuterol 0.083% 2.5 MG/3 ML Neb Soln INH PRN (21:26)
[2019-01-21] MEDS: Glycopyrrolate 1 MG Tab PO SCH (21:39)
[2019-01-21] MEDS: levETIRAcetam 500 MG Tab PO SCH (21:40)
[2019-01-21] MEDS: Aspirin/Dipyridamole 200-25 MG Cap.ER PO SCH (21:40)
[2019-01-21] MEDS: PROPYLENE GLYCOL 0.6% EYEBOTH SCH (21:40)
[2019-01-21] MEDS: Latanoprost 0.005% Ophth Soln 2.5 ML Bottle EYEBOTH SCH (21:41)
[2019-01-21] MEDS: Acetaminophen 500 MG Tab PO SCH (21:42)
[2019-01-22] MEDS: metroNIDAZOLE/Normal Saline 500 MG in Premix Bag 1 BAG IV SCH ×3 (03:19→20:55)
[2019-01-22] MEDS: Sodium Chloride 0.9% 1,000 ML IV SCH ×2 (06:20→18:06)
--- NOTE | 2019-01-22 08:27 | PCM.PN ---
- General Info Date of Service: 01/22/19 Admission Dx/Problem (Free Text): Patient can only communicate through grumbles and nodding. From what I can tell he denies cough or shortness of breath or fevers. - Patient Data Vitals - Most Recent: Last Vital Signs Temp 98.1 F 01/22/19 04:00 Pulse 92 01/22/19 04:00 Resp 20 01/22/19 04:00 BP 96/52 L 01/22/19 04:00 Pulse Ox 92 L 01/22/19 05:00 Weight - Most Recent: 189 lb 8 oz I&O - Last 24 Hours: Intake & Output 01/21/19 01/22/19 01/22/19 22:59 06:59 14:59 Intake Total 696 908 Balance 696 908 Lab Results Last 24 Hours: Laboratory Results - last 24 hr 01/21/19 01/21/19 01/21/19 Range/Units 14:40 14:40 14:40 WBC 25.0 H (4.5-12.0) X10-3/uL RBC 4.92 (4.30-5.75) x10(6)uL Hgb 14.4 (13.5-17.8) g/dL Hct 43.3 (30.0-51.3) % MCV 88.0 (80-96) fL MCH 29.2 (27.7-33.6) pg MCHC 33.1 (32.2-35.4) g/dL RDW 15.5 (11.5-15.5) % Plt Count 322 (125-369) X10(3)uL MPV 8.1 (7.4-10.4) fL Add Manual Diff Yes Neutrophils % (Manual) 86 H (46-82) % Band Neutrophils % 7 H (0-6) % Lymphocytes % (Manual) 3 L (13-37) % Monocytes % (Manual) 4 (4-12) % PT 9.9 (8.7-11.1) INR 1.02 (0.89-1.13) D-Dimer, Quantitative (0.0-0.59) mg/LFEU POC VBG pH (7.31-7.41) POC VBG pCO2 (41-51) mmHG POC VBG HCO3 (23-28) mmol/L POC VBG Total CO2 (24-29) mmol/L POC VBG Base Excess (-2-3) mmol/L Sodium 147 H (135-145) mmol/L Potassium 4.1 (3.5-5.3) mmol/L Chloride 108 (100-110) mmol/L Carbon Dioxide 28 (21-32) mmol/L BUN 36 H (7-18) mg/dL Creatinine 1.5 H (0.70-1.30) mg/dL Est Cr Clr Drug Dosing TNP Estimated GFR (MDRD) 44 L (>60) BUN/Creatinine Ratio 24.0 H (9-20) Glucose 134 H (80-116) mg/dL Lactic Acid (0.4-2.2) mmol/L Calcium 9.8 (8.6-10.2) mg/dL Total Bilirubin 0.7 (0.1-1.3) mg/dL AST 15 (5-25) IU/L ALT 21 D (12-36) U/L Alkaline Phosphatase 67 (56-112) IU/L Troponin I (<0.017-0.056) ng/mL C-Reactive Protein (0.5-0.9) mg/dL NT-Pro-B Natriuret Pep (<=450) pg/mL Total Protein 8.0 (6.0-8.0) g/dL Albumin 3.6 (3.2-4.6) g/dL Globulin 4.4 g/dL Albumin/Globulin Ratio 0.8 01/21/19 01/21/19 01/21/19 Range/Units 14:40 14:40 14:40 WBC (4.5-12.0) X10-3/uL RBC (4.30-5.75) x10(6)uL Hgb (13.5-17.8) g/dL Hct (30.0-51.3) % MCV (80-96) fL MCH (27.7-33.6) pg MCHC (32.2-35.4) g/dL RDW (11.5-15.5) % Plt Count (125-369) X10(3)uL MPV (7.4-10.4) fL Add Manual Diff Neutrophils % (Manual) (46-82) % Band Neutrophils % (0-6) % Lymphocytes % (Manual) (13-37) % Monocytes % (Manual) (4-12) % PT (8.7-11.1) INR (0.89-1.13) D-Dimer, Quantitative (0.0-0.59) mg/LFEU POC VBG pH (7.31-7.41) POC VBG pCO2 (41-51) mmHG POC VBG HCO3 (23-28) mmol/L POC VBG Total CO2 (24-29) mmol/L POC VBG Base Excess (-2-3) mmol/L Sodium (135-145) mmol/L Potassium (3.5-5.3) mmol/L Chloride (100-110) mmol/L Carbon Dioxide (21-32) mmol/L BUN (7-18) mg/dL Creatinine (0.70-1.30) mg/dL Est Cr Clr Drug Dosing Estimated GFR (MDRD) (>60) BUN/Creatinine Ratio (9-20) Glucose (80-116) mg/dL Lactic Acid 1.8 (0.4-2.2) mmol/L Calcium (8.6-10.2) mg/dL Total Bilirubin (0.1-1.3) mg/dL AST (5-25) IU/L ALT (12-36) U/L Alkaline Phosphatase (56-112) IU/L Troponin I 0.028 (<0.017-0.056) ng/mL C-Reactive Protein 5.4 H* (0.5-0.9) mg/dL NT-Pro-B Natriuret Pep 1376 H* (<=450) pg/mL Total Protein (6.0-8.0) g/dL Albumin (3.2-4.6) g/dL Globulin g/dL Albumin/Globulin Ratio 01/21/19 01/21/19 Range/Units 14:48 16:01 WBC (4.5-12.0) X10-3/uL RBC (4.30-5.75) x10(6)uL Hgb (13.5-17.8) g/dL Hct (30.0-51.3) % MCV (80-96) fL MCH (27.7-33.6) pg MCHC (32.2-35.4) g/dL RDW (11.5-15.5) % Plt Count (125-369) X10(3)uL MPV (7.4-10.4) fL Add Manual Diff Neutrophils % (Manual) (46-82) % Band Neutrophils % (0-6) % Lymphocytes % (Manual) (13-37) % Monocytes % (Manual) (4-12) % PT (8.7-11.1) INR (0.89-1.13) D-Dimer, Quantitative 2.23 H (0.0-0.59) mg/LFEU POC VBG pH 7.37 (7.31-7.41) POC VBG pCO2 46.3 (41-51) mmHG POC VBG HCO3 26.5 (23-28) mmol/L POC VBG Total CO2 28 (24-29) mmol/L POC VBG Base Excess 1 (-2-3) mmol/L Sodium (135-145) mmol/L Potassium (3.5-5.3) mmol/L Chloride (100-110) mmol/L Carbon Dioxide (21-32) mmol/L BUN (7-18) mg/dL Creatinine (0.70-1.30) mg/dL Est Cr Clr Drug Dosing Estimated GFR (MDRD) (>60) BUN/Creatinine Ratio (9-20) Glucose (80-116) mg/dL Lactic Acid (0.4-2.2) mmol/L Calcium (8.6-10.2) mg/dL Total Bilirubin (0.1-1.3) mg/dL AST (5-25) IU/L ALT (12-36) U/L Alkaline Phosphatase (56-112) IU/L Troponin I (<0.017-0.056) ng/mL C-Reactive Protein (0.5-0.9) mg/dL NT-Pro-B Natriuret Pep (<=450) pg/mL Total Protein (6.0-8.0) g/dL Albumin (3.2-4.6) g/dL Globulin g/dL Albumin/Globulin Ratio Med Orders - Current: Current Medications Acetaminophen (Tylenol) 650 mg PO Q4H PRN PRN Reason: Pain/Fever Acetaminophen (Tylenol Extra Strength) 1,000 mg PO BEDTIME [facility] Last Admin: 01/21/19 21:42 Dose: 1,000 mg Albuterol (Proventil Neb Soln) 2.5 mg INH Q4H PRN PRN Reason: Cough Last Admin: 01/21/19 21:26 Dose: 2.5 mg Bisacodyl (Dulcolax) 10 mg RECTAL Q72H PRN PRN Reason: Constipation Dipyridamole/Aspirin (Aggrenox 200-25 Mg) 1 cap PO BID [facility] Last Admin: 01/21/19 21:40 Dose: 1 cap Enoxaparin Sodium (Lovenox) 30 mg SUBCUT Q24H [facility] Last Admin: 01/21/19 18:48 Dose: 30 mg Gabapentin (Neurontin) 300 mg PO BID@08,17 [facility] Glycopyrrolate (Robinul) 0.5 mg PO TID@08,14, [facility] Last Admin: 01/21/19 21:39 Dose: 0.5 mg Guaifenesin (Robitussin) 200 mg PO Q4H PRN PRN Reason: Cough Sodium Chloride (Normal Saline) 1,000 mls @ 100 mls/hr IV ASDIRECTED [facility] Last Admin: 01/22/19 06:20 Dose: 100 mls/hr Metronidazole 500 mg/ Premix 100 mls @ 100 mls/hr IV Q8H [facility] Last Admin: 01/22/19 03:19 Dose: 100 mls/hr Lactulose (Chronulac) 10 gm PO DAILY [facility] Latanoprost (Xalatan 0.005% Ophth Soln) 0 ml EYEBOTH BEDTIME [facility] Last Admin: 01/21/19 21:41 Dose: 1 drop Levetiracetam (Keppra) 500 mg PO BID [facility] Last Admin: 01/21/19 21:40 Dose: 500 mg Loperamide HCl (Imodium) 2 mg PO ASDIRECTED [facility] Magnesium Hydroxide (Milk Of Magnesia) 30 ml PO DAILY PRN PRN Reason: Constipation Nabumetone (Relafen) 500 mg PO DAILY [facility] Propylene Glycol (Systane Balance) 0 ml EYEBOTH BID [facility] Last Admin: 01/21/19 21:40 Dose: 1 drop Senna/Docusate Sodium (Senna Plus) 2 tab PO BID [facility] Last Admin: 01/21/19 21:40 Dose: 2 tab Sertraline HCl (Zoloft) 150 mg PO DAILY [facility] Sodium Chloride (Saline Flush) 10 ml FLUSH ASDIRECTED PRN PRN Reason: Keep Vein Open Last Admin: 01/21/19 16:10 Dose: 10 ml Vancomycin HCl (Pharmacy To Dose - Vancomycin) 1 dose .XX ASDIRECTED [facility] Discontinued Medications Albuterol/Ipratropium (Duoneb 3.0-0.5 Mg/3 Ml) 3 ml NEB ONETIME ONE Stop: 01/21/19 14:01 Last Admin: 01/21/19 14:22 Dose: 3 ml Ceftriaxone Sodium (Rocephin) 1 gm IVPUSH ONETIME ONE Stop: 01/21/19 16:04 Last Admin: 01/21/19 16:10 Dose: 1 gm Vancomycin HCl 1 gm/Vancomycin HCl 750 mg/ Sodium Chloride 500 mls @ 250 mls/ hr IV ONETIME ONE Stop: 01/21/19 18:59 Last Admin: 01/21/19 17:07 Dose: 250 mls/hr Vancomycin HCl 500 mg/Vancomycin HCl 750 mg/ Sodium Chloride 250 mls @ 167 mls/ hr IV Q24H [facility] Metronidazole 500 mg/ Premix 100 mls @ 100 mls/hr IV Q8H [facility] Last Admin: 01/21/19 18:51 Dose: Not Given - Exam General: Alert, Oriented, Cooperative Lungs: Normal Respiratory Effort, Rhonchi Cardiovascular: Regular Rate, Regular Rhythm, No Murmurs Extremities: No Pedal Edema - Problem List & Annotations (1) Palliative care status SNOMED Code(s): 466203038 Code(s): Z51.5 - ENCOUNTER FOR PALLIATIVE CARE Status: Acute Current Visit: Yes (2) Recurrent aspiration pneumonia SNOMED Code(s): 584805752 Code(s): J69.0 - PNEUMONITIS DUE TO INHALATION OF FOOD AND VOMIT Status: Acute Current Visit: Yes (3) Respiratory failure with hypoxia SNOMED Code(s): 33237952377850585 Code(s): J96.91 - RESPIRATORY FAILURE, UNSPECIFIED WITH HYPOXIA Status: Acute Current Visit: Yes Qualifiers: Chronicity: acute Qualified Code(s): J96.01 - Acute respiratory failure with hypoxia (4) Dysphagia SNOMED Code(s): 38990104, 085187914 Code(s): R13.10 - DYSPHAGIA, UNSPECIFIED Status: Acute Current Visit: No Qualifiers: Dysphagia type: unspecified Qualified Code(s): R13.10 - Dysphagia, unspecified - Problem List Review Problem List Initiated/Reviewed/Updated: Yes - My Orders Last 24 Hours: My Active Orders 01/21/19 17:51 Acetaminophen [Tylenol] 650 mg PO Q4H PRN Albuterol [Proventil Neb Soln] 2.5 mg INH Q4H PRN Bisacodyl [Dulcolax] 10 mg RECTAL Q72H PRN Magnesium Hydroxide [Milk of Magnesia] 30 ml PO DAILY PRN guaiFENesin [Robitussin] 200 mg PO Q4H PRN 01/21/19 17:54 Admission Status [Patient Status] [ADT] Routine 01/21/19 18:00 Enoxaparin [Lovenox] 30 mg SUBCUT Q24H Loperamide [Imodium] 2 mg PO ASDIRECTED 01/21/19 20:00 Glycopyrrolate [Robinul] 0.5 mg PO TID@08,14,20 metroNIDAZOLE/Normal Saline [Flagyl 500 MG in NS 100 ML] 500 mg Premix Bag 1 bag IV Q8H 01/21/19 21:00 Acetaminophen [Tylenol Extra Strength] 1,000 mg PO BEDTIME Aspirin/Dipyridamole [Aggrenox 200-25 MG] 1 cap PO BID Docusate Sodium/Sennosides [Senna Plus] 2 tab PO BID Latanoprost [Xalatan 0.005% Ophth Soln] 0 ml EYEBOTH BEDTIME Propylene Glycol [Systane Balance] 0 ml EYEBOTH BID levETIRAcetam [Keppra] 500 mg PO BID 01/22/19 08:00 Gabapentin [Neurontin] 300 mg PO BID@08,17 01/22/19 08:15 CBC WITH AUTO DIFF [HEME] Routine 01/22/19 08:22 Up in Wheelchair [RC] ASDIRECTED 01/22/19 08:23 Consult to Speech Language Pathology [RN HOSPICE Evaluation and Treatment] [CONS] Routine Swallowing Function w Video [CR] Routine 01/22/19 09:00 Lactulose [Chronulac] 10 gm PO DAILY Nabumetone [Relafen] 500 mg PO DAILY Sertraline [Zoloft] 150 mg PO DAILY 01/22/19 Lunch Thickened Liquids [DIET] - Plan Plan:: 1. Patient had a swallowing study in December that I reviewed. Dr. Wallace stated he should be on thickened liquids but he does not like it 2. CBC 3. Thickened liquids. 4. Speech pathology consultation 5. Up in chair when necessary. 6. Continue O2 to keep sats greater than 90%. 7. Continue current antibiotics.
[2019-01-22] MEDS: Aspirin/Dipyridamole 200-25 MG Cap.ER PO SCH ×2 (08:33→21:00)
[2019-01-22] MEDS: Glycopyrrolate 1 MG Tab PO SCH ×3 (08:33→20:58)
[2019-01-22] MEDS: Gabapentin 300 MG Cap PO SCH ×2 (08:33→18:04)
[2019-01-22] MEDS: Lactulose Soln 10 GM/15 ML 15 ML UD Cup PO SCH (08:34)
[2019-01-22] MEDS: levETIRAcetam 500 MG Tab PO SCH ×2 (08:34→20:59)
[2019-01-22] MEDS: PROPYLENE GLYCOL 0.6% EYEBOTH SCH ×2 (08:35→20:57)
[2019-01-22] MEDS: Sertraline 50 MG Tab PO SCH (08:35)
[2019-01-22] MEDS ORDERED: Vancomycin 500 MG, Vancomycin 750 MG in Sodium Chloride 0.9% 250 ML IV SCH (17:00)
[2019-01-22] MEDS: Enoxaparin 30 MG/0.3 ML Syringe SUBCUT SCH (18:04)
[2019-01-22] MEDS: Albuterol 0.083% 2.5 MG/3 ML Neb Soln INH PRN (20:56)
[2019-01-22] MEDS: Acetaminophen 500 MG Tab PO SCH (21:00)
[2019-01-22] MEDS: Latanoprost 0.005% Ophth Soln 2.5 ML Bottle EYEBOTH SCH (21:01)
[2019-01-23] MEDS: metroNIDAZOLE/Normal Saline 500 MG in Premix Bag 1 BAG IV SCH ×3 (04:00→20:45)
[2019-01-23] MEDS: Sodium Chloride 0.9% 10 ML Syringe FLUSH PRN ×2 (05:11→23:05)
[2019-01-23] MEDS: Albuterol 0.083% 2.5 MG/3 ML Neb Soln INH PRN ×2 (05:12→21:00)
[2019-01-23] MEDS ORDERED: Loperamide 2 MG Cap PO PRN (07:51)
--- NOTE | 2019-01-23 08:36 | PCM.PN ---
- General Info Date of Service: 01/23/19 Admission Dx/Problem (Free Text): Patient is nonverbal but can communicate a little bit. When asked him how he is doing he just doesn't really make any expression. He denies shortness of breath , coughing or fevers as far as I can tell. Apparently was gurgling last day to stop IV fluids and is much better today and he was suctioned also. - Patient Data Vitals - Most Recent: Last Vital Signs Temp 98.1 F 01/23/19 04:00 Pulse 76 01/23/19 05:10 Resp 20 01/23/19 04:00 BP 122/46 L 01/23/19 04:00 Pulse Ox 93 L 01/23/19 04:00 Weight - Most Recent: 189 lb 8 oz I&O - Last 24 Hours: Intake & Output 01/22/19 01/23/19 01/23/19 22:59 06:59 14:59 Intake Total 1397 584 Balance 1397 584 Lab Results Last 24 Hours: Laboratory Results - last 24 hr 01/22/19 01/23/19 01/23/19 Range/Units 08:15 06:12 06:12 WBC 15.5 H (4.5-12.0) X10-3/uL RBC 3.85 L (4.30-5.75) x10(6)uL Hgb 11.3 L (13.5-17.8) g/dL Hct 34.5 (30.0-51.3) % MCV 89.5 (80-96) fL MCH 29.4 (27.7-33.6) pg MCHC 32.9 (32.2-35.4) g/dL RDW 16.1 H (11.5-15.5) % Plt Count 192 (125-369) X10(3)uL MPV 8.3 (7.4-10.4) fL Neut % (Auto) 88.4 H (46-82) % Lymph % (Auto) 7.3 L (13-37) % [place] % (Auto) 3.6 L (4-12) % Eos % (Auto) 1 (1.0-5.0) % Baso % (Auto) 0 (0-2) % Neut # (Auto) 13.7 H (1.6-8.3) # Lymph # (Auto) 1.1 (0.6-5.0) # [place] # (Auto) 0.6 (0.0-1.3) # Eos # (Auto) 0.1 (0.0-0.8) # Baso # (Auto) 0.0 (0.0-0.2) # Neutrophils % (Manual) 92 H (46-82) % Lymphocytes % (Manual) 5 L (13-37) % Monocytes % (Manual) 3 L (4-12) % Sodium 152 H (135-145) mmol/L Potassium 3.8 (3.5-5.3) mmol/L Chloride 115 H D (100-110) mmol/L Carbon Dioxide 22 (21-32) mmol/L BUN 30 H (7-18) mg/dL Creatinine 1.4 H (0.70-1.30) mg/dL Est Cr Clr Drug Dosing 33.55 mL/min Estimated GFR (MDRD) 48 L (>60) BUN/Creatinine Ratio 21.4 H (9-20) Glucose 153 H (80-116) mg/dL Calcium 8.6 (8.6-10.2) mg/dL [place] Results Last 24 Hours: Microbiology 01/21/19 14:40 Aerobic Blood Culture - Preliminary Blood - Venous - Lab Draw NO GROWTH AFTER 1 DAY Anaerobic Blood Culture - Preliminary NO GROWTH AFTER 1 DAY 01/21/19 14:30 Aerobic Blood Culture - Preliminary Blood - Venous NO GROWTH AFTER 1 DAY Anaerobic Blood Culture - Preliminary NO GROWTH AFTER 1 DAY Med Orders - Current: Current Medications Acetaminophen (Tylenol) 650 mg PO Q4H PRN PRN Reason: Pain/Fever Acetaminophen (Tylenol Extra Strength) 1,000 mg PO BEDTIME [facility] Last Admin: 01/22/19 21:00 Dose: 1,000 mg Albuterol (Proventil Neb Soln) 2.5 mg INH Q4H PRN PRN Reason: Cough Last Admin: 01/23/19 05:12 Dose: 2.5 mg Bisacodyl (Dulcolax) 10 mg RECTAL Q72H PRN PRN Reason: Constipation Dipyridamole/Aspirin (Aggrenox 200-25 Mg) 1 cap PO BID [facility] Last Admin: 01/22/19 21:00 Dose: 1 cap Enoxaparin Sodium (Lovenox) 30 mg SUBCUT Q24H [facility] Last Admin: 01/22/19 18:04 Dose: 30 mg Gabapentin (Neurontin) 300 mg PO BID@08,17 [facility] Last Admin: 01/22/19 18:04 Dose: 300 mg Glycopyrrolate (Robinul) 0.5 mg PO TID@08,14,20 [facility] Last Admin: 01/22/19 20:58 Dose: 0.5 mg Guaifenesin (Robitussin) 200 mg PO Q4H PRN PRN Reason: Cough Metronidazole 500 mg/ Premix 100 mls @ 100 mls/hr IV Q8H [facility] Last Admin: 01/23/19 04:00 Dose: 100 mls/hr Lactulose (Chronulac) 10 gm PO DAILY [facility] Last Admin: 01/22/19 08:34 Dose: 10 gm Latanoprost (Xalatan 0.005% Ophth Soln) 0 ml EYEBOTH BEDTIME [facility] Last Admin: 01/22/19 21:01 Dose: 1 drop Levetiracetam (Keppra) 500 mg PO BID [facility] Last Admin: 01/22/19 20:59 Dose: 500 mg Loperamide HCl (Imodium) 2 mg PO Q6H PRN PRN Reason: Diarrhea Magnesium Hydroxide (Milk Of Magnesia) 30 ml PO DAILY PRN PRN Reason: Constipation Nabumetone (Relafen) 500 mg PO DAILY [facility] Last Admin: 01/22/19 08:35 Dose: 500 mg Propylene Glycol (Systane Balance) 0 ml EYEBOTH BID [facility] Last Admin: 01/22/19 20:57 Dose: 1 drop Senna/Docusate Sodium (Senna Plus) 2 tab PO BID [facility] Last Admin: 01/22/19 21:00 Dose: 2 tab Sertraline HCl (Zoloft) 150 mg PO DAILY [facility] Last Admin: 01/22/19 08:35 Dose: 150 mg Sodium Chloride (Saline Flush) 10 ml FLUSH ASDIRECTED PRN PRN Reason: Keep Vein Open Last Admin: 01/23/19 05:11 Dose: 10 ml Vancomycin HCl (Pharmacy To Dose - Vancomycin) 1 dose .XX ASDIRECTED [facility] Discontinued Medications Albuterol/Ipratropium (Duoneb 3.0-0.5 Mg/3 Ml) 3 ml NEB ONETIME ONE Stop: 01/21/19 14:01 Last Admin: 01/21/19 14:22 Dose: 3 ml Ceftriaxone Sodium (Rocephin) 1 gm IVPUSH ONETIME ONE Stop: 01/21/19 16:04 Last Admin: 01/21/19 16:10 Dose: 1 gm Vancomycin HCl 1 gm/Vancomycin HCl 750 mg/ Sodium Chloride 500 mls @ 250 mls/ hr IV ONETIME ONE Stop: 01/21/19 18:59 Last Admin: 01/21/19 17:07 Dose: 250 mls/hr Vancomycin HCl 500 mg/Vancomycin HCl 750 mg/ Sodium Chloride 250 mls @ 167 mls/ hr IV Q24H [facility] Sodium Chloride (Normal Saline) 1,000 mls @ 70 mls/hr IV ASDIRECTED [facility] Last Admin: 01/22/19 18:06 Dose: 70 mls/hr Metronidazole 500 mg/ Premix 100 mls @ 100 mls/hr IV Q8H [facility] Last Admin: 01/21/19 18:51 Dose: Not Given Loperamide HCl (Imodium) 2 mg PO ASDIRECTED [facility] - Exam General: Alert, Oriented, Cooperative Lungs: Clear to Auscultation, Normal Respiratory Effort, Rhonchi (Occasional). No: Crackles, Rales Cardiovascular: Regular Rate, Regular Rhythm, No Murmurs Extremities: No Pedal Edema - Problem List & Annotations (1) Palliative care status SNOMED Code(s): 834070719 Code(s): Z51.5 - ENCOUNTER FOR PALLIATIVE CARE Status: Acute Current Visit: Yes (2) Recurrent aspiration pneumonia SNOMED Code(s): 384663115 Code(s): J69.0 - PNEUMONITIS DUE TO INHALATION OF FOOD AND VOMIT Status: Acute Current Visit: Yes (3) Respiratory failure with hypoxia SNOMED Code(s): 22328580083544890 Code(s): J96.91 - RESPIRATORY FAILURE, UNSPECIFIED WITH HYPOXIA Status: Acute Current Visit: Yes Qualifiers: Chronicity: acute Qualified Code(s): J96.01 - Acute respiratory failure with hypoxia (4) Dysphagia SNOMED Code(s): 53173788, 982671871 Code(s): R13.10 - DYSPHAGIA, UNSPECIFIED Status: Acute Current Visit: No Qualifiers: Dysphagia type: unspecified Qualified Code(s): R13.10 - Dysphagia, unspecified (5) Hypernatremia SNOMED Code(s): 662847008 Code(s): E87.0 - HYPEROSMOLALITY AND HYPERNATREMIA Status: Acute Current Visit: Yes - Problem List Review Problem List Initiated/Reviewed/Updated: Yes - My Orders Last 24 Hours: My Active Orders 01/22/19 08:00 Gabapentin [Neurontin] 300 mg PO BID@08,17 01/22/19 08:22 Up in Wheelchair [RC] ASDIRECTED 01/22/19 08:23 Consult to Speech Language Pathology [[employer] ASSIST[employer] Evaluation and Treatment] [CONS] Routine 01/22/19 09:00 Lactulose [Chronulac] 10 gm PO DAILY Nabumetone [Relafen] 500 mg PO DAILY Sertraline [Zoloft] 150 mg PO DAILY 01/22/19 17:03 RT Suction Oropharyngeal [RESPCARE] Routine 01/23/19 07:51 Loperamide [Imodium] 2 mg PO Q6H PRN 01/23/19 Breakfast Thickened Liquids [DIET] - Plan Plan:: 1. Restart fluids with D5 half-normal saline at 70 mL an hour. 2. Sodium at 3 PM today. 3. Continue to get him up in his wheelchair and continue the IV antibiotics. 4. Continue thickened liquids.
[2019-01-23] MEDS ORDERED: D5 1/2 NS w/ 10 mEq/L KCl 1,000 ML IV SCH (08:45)
[2019-01-23] MEDS: Glycopyrrolate 1 MG Tab PO SCH ×3 (08:49→20:45)
[2019-01-23] MEDS: Gabapentin 300 MG Cap PO SCH ×2 (08:49→18:06)
[2019-01-23] MEDS: Aspirin/Dipyridamole 200-25 MG Cap.ER PO SCH ×2 (08:49→21:08)
[2019-01-23] MEDS: Lactulose Soln 10 GM/15 ML 15 ML UD Cup PO SCH (08:50)
[2019-01-23] MEDS: levETIRAcetam 500 MG Tab PO SCH ×2 (08:50→21:09)
[2019-01-23] MEDS: PROPYLENE GLYCOL 0.6% EYEBOTH SCH ×2 (08:52→21:06)
[2019-01-23] MEDS: Sertraline 50 MG Tab PO SCH (09:04)
[2019-01-23] MEDS: D5 1/2 NS w/ 20 mEq/L KCl 1,000 ML IV SCH (11:04)
[2019-01-23] MEDS: Enoxaparin 30 MG/0.3 ML Syringe SUBCUT SCH (18:42)
[2019-01-23] MEDS: Latanoprost 0.005% Ophth Soln 2.5 ML Bottle EYEBOTH SCH (21:07)
[2019-01-23] MEDS: Acetaminophen 500 MG Tab PO SCH (21:09)
[2019-01-24] MEDS: D5 1/2 NS w/ 20 mEq/L KCl 1,000 ML IV SCH (02:56)
[2019-01-24] MEDS: metroNIDAZOLE/Normal Saline 500 MG in Premix Bag 1 BAG IV SCH (03:03)
[2019-01-24] MEDS ORDERED: Latanoprost 0.005% Ophth Soln 2.5 ML Bottle EYEBOTH SCH (06:50)
--- NOTE | 2019-01-24 08:34 | PCM.PN ---
- General Info Date of Service: 01/24/19 Admission Dx/Problem (Free Text): Patient cannot communicate with me today. That is because of his stroke. Right- sided here to help. The nurses state he had a good night and is now off oxygen - Patient Data Vitals - Most Recent: Last Vital Signs Temp 98.1 F 01/24/19 04:00 Pulse 68 01/24/19 04:00 Resp 20 01/24/19 04:00 BP 132/42 L 01/24/19 04:00 Pulse Ox 95 01/24/19 04:00 Weight - Most Recent: 189 lb 8 oz I&O - Last 24 Hours: Intake & Output 01/23/19 01/24/19 01/24/19 22:59 06:59 14:59 Intake Total 1306 615 Balance 1306 615 Lab Results Last 24 Hours: Laboratory Results - last 24 hr 01/23/19 01/24/19 Range/Units 15:25 06:25 Sodium 151 H 150 H (135-145) mmol/L Potassium 3.9 (3.5-5.3) mmol/L Chloride 115 H (100-110) mmol/L Carbon Dioxide 23 (21-32) mmol/L BUN 22 H (7-18) mg/dL Creatinine 1.2 (0.70-1.30) mg/dL Est Cr Clr Drug Dosing 39.14 mL/min Estimated GFR (MDRD) 57 L (>60) BUN/Creatinine Ratio 18.3 (9-20) Glucose 132 H (80-116) mg/dL Calcium 8.4 L (8.6-10.2) mg/dL Cliff Results Last 24 Hours: Microbiology 01/21/19 14:40 Aerobic Blood Culture - Preliminary Blood - Venous - Lab Draw NO GROWTH AFTER 2 DAYS Anaerobic Blood Culture - Preliminary NO GROWTH AFTER 2 DAYS 01/21/19 14:30 Aerobic Blood Culture - Preliminary Blood - Venous NO GROWTH AFTER 2 DAYS Anaerobic Blood Culture - Preliminary NO GROWTH AFTER 2 DAYS Med Orders - Current: Current Medications Acetaminophen (Tylenol) 650 mg PO Q4H PRN PRN Reason: Pain/Fever Acetaminophen (Tylenol Extra Strength) 1,000 mg PO BEDTIME [facility] Last Admin: 01/23/19 21:09 Dose: 1,000 mg Albuterol (Proventil Neb Soln) 2.5 mg INH Q4H PRN PRN Reason: Cough Last Admin: 01/23/19 21:00 Dose: 2.5 mg Bisacodyl (Dulcolax) 10 mg RECTAL Q72H PRN PRN Reason: Constipation Dipyridamole/Aspirin (Aggrenox 200-25 Mg) 1 cap PO BID [facility] Last Admin: 01/23/19 21:08 Dose: 1 cap Enoxaparin Sodium (Lovenox) 30 mg SUBCUT Q24H [facility] Last Admin: 01/23/19 18:42 Dose: 30 mg Gabapentin (Neurontin) 300 mg PO BID@08,17 [facility] Last Admin: 01/23/19 18:06 Dose: 300 mg Glycopyrrolate (Robinul) 0.5 mg PO TID@08,14,20 [facility] Last Admin: 01/23/19 20:45 Dose: 0.5 mg Guaifenesin (Robitussin) 200 mg PO Q4H PRN PRN Reason: Cough Metronidazole 500 mg/ Premix 100 mls @ 100 mls/hr IV Q8H [facility] Last Admin: 01/24/19 03:03 Dose: 100 mls/hr Dextrose/Water (Dextrose 5% In Water) 1,000 mls @ 50 mls/hr IV ASDIRECTED [facility] Lactulose (Chronulac) 10 gm PO DAILY [facility] Last Admin: 01/23/19 08:50 Dose: Not Given Latanoprost (Xalatan 0.005% Oph Soln) 0 ml EYEBOTH BEDTIME [facility] Levetiracetam (Keppra) 500 mg PO BID [facility] Last Admin: 01/23/19 21:09 Dose: 500 mg Loperamide HCl (Imodium) 2 mg PO Q6H PRN PRN Reason: Diarrhea Magnesium Hydroxide (Milk Of Magnesia) 30 ml PO DAILY PRN PRN Reason: Constipation Nabumetone (Relafen) 500 mg PO DAILY [facility] Last Admin: 01/23/19 08:50 Dose: 500 mg Propylene Glycol (Systane Balance) 0 ml EYEBOTH BID [facility] Last Admin: 01/23/19 21:06 Dose: 1 drop Senna/Docusate Sodium (Senna Plus) 2 tab PO BID [facility] Last Admin: 01/23/19 21:09 Dose: 2 tab Sertraline HCl (Zoloft) 150 mg PO DAILY [facility] Last Admin: 01/23/19 09:04 Dose: 150 mg Sodium Chloride (Saline Flush) 10 ml FLUSH ASDIRECTED PRN PRN Reason: Keep Vein Open Last Admin: 01/23/19 23:05 Dose: 10 ml Discontinued Medications Albuterol/Ipratropium (Duoneb 3.0-0.5 Mg/3 Ml) 3 ml NEB ONETIME ONE Stop: 01/21/19 14:01 Last Admin: 01/21/19 14:22 Dose: 3 ml Ceftriaxone Sodium (Rocephin) 1 gm IVPUSH ONETIME ONE Stop: 01/21/19 16:04 Last Admin: 01/21/19 16:10 Dose: 1 gm Vancomycin HCl 1 gm/Vancomycin HCl 750 mg/ Sodium Chloride 500 mls @ 250 mls/ hr IV ONETIME ONE Stop: 01/21/19 18:59 Last Admin: 01/21/19 17:07 Dose: 250 mls/hr Vancomycin HCl 500 mg/Vancomycin HCl 750 mg/ Sodium Chloride 250 mls @ 167 mls/ hr IV Q24H [facility] Sodium Chloride (Normal Saline) 1,000 mls @ 70 mls/hr IV ASDIRECTED [facility] Last Admin: 01/22/19 18:06 Dose: 70 mls/hr Metronidazole 500 mg/ Premix 100 mls @ 100 mls/hr IV Q8H [facility] Last Admin: 01/21/19 18:51 Dose: Not Given Potassium Chloride/Dextrose/Sod Cl (D5 1/2 Ns W/ 10 Meq/L Kcl) 1,000 mls @ 70 mls/hr IV ASDIRECTED [facility] Potassium Chloride/Dextrose/Sod Cl (D5 1/2 Ns W/ 20 Meq/L Kcl) 1,000 mls @ 75 mls/hr IV ASDIRECTED [facility] Last Admin: 01/24/19 02:56 Dose: 75 mls/hr Latanoprost (Xalatan 0.005% Ophth Soln) 0 ml EYEBOTH BEDTIME [facility] Last Admin: 01/23/19 21:07 Dose: 1 drop Loperamide HCl (Imodium) 2 mg PO ASDIRECTED [facility] - Exam General: Alert, Oriented, Cooperative Lungs: Normal Respiratory Effort, Rhonchi (Occasional). No: Crackles, Rales Cardiovascular: Regular Rate, Regular Rhythm, No Murmurs - Problem List & Annotations (1) Palliative care status SNOMED Code(s): 536697681 Code(s): Z51.5 - ENCOUNTER FOR PALLIATIVE CARE Status: Acute Current Visit: Yes (2) Recurrent aspiration pneumonia SNOMED Code(s): 251775538 Code(s): J69.0 - PNEUMONITIS DUE TO INHALATION OF FOOD AND VOMIT Status: Acute Current Visit: Yes (3) Respiratory failure with hypoxia SNOMED Code(s): 92081519292851124 Code(s): J96.91 - RESPIRATORY FAILURE, UNSPECIFIED WITH HYPOXIA Status: Acute Current Visit: Yes Qualifiers: Chronicity: acute Qualified Code(s): J96.01 - Acute respiratory failure with hypoxia (4) Dysphagia SNOMED Code(s): 48863177, 496328429 Code(s): R13.10 - DYSPHAGIA, UNSPECIFIED Status: Acute Current Visit: No Qualifiers: Dysphagia type: unspecified Qualified Code(s): R13.10 - Dysphagia, unspecified (5) Hypernatremia SNOMED Code(s): 241117819 Code(s): E87.0 - HYPEROSMOLALITY AND HYPERNATREMIA Status: Acute Current Visit: Yes - Problem List Review Problem List Initiated/Reviewed/Updated: Yes - My Orders Last 24 Hours: My Active Orders 01/23/19 07:51 Loperamide [Imodium] 2 mg PO Q6H PRN 01/24/19 06:50 Latanoprost [Xalatan 0.005% Ophth Soln] 0 ml EYEBOTH BEDTIME 01/24/19 08:30 Dextrose 5% in Water 1,000 ml IV ASDIRECTED 01/24/19 15:30 SODIUM,NA [CHEM] Routine - Plan Plan:: 1. Change fluids to D5 water 50 mL an hour. 2. Sodium at 3:30 PM today. 3. Continue antibiotics. 4. Speech consultation which is ordered.
[2019-01-24] MEDS: Dextrose 5% in Water 1,000 ML IV SCH (08:35)
[2019-01-24] MEDS: Gabapentin 300 MG Cap PO SCH ×2 (08:44→17:47)
[2019-01-24] MEDS: Glycopyrrolate 1 MG Tab PO SCH ×3 (08:45→21:32)
[2019-01-24] MEDS: Aspirin/Dipyridamole 200-25 MG Cap.ER PO SCH ×2 (08:46→21:32)
[2019-01-24] MEDS: Lactulose Soln 10 GM/15 ML 15 ML UD Cup PO SCH (08:47)
[2019-01-24] MEDS: levETIRAcetam 500 MG Tab PO SCH ×2 (08:47→21:33)
[2019-01-24] MEDS: Sertraline 50 MG Tab PO SCH (08:49)
[2019-01-24] MEDS: PROPYLENE GLYCOL 0.6% EYEBOTH SCH ×2 (08:49→21:33)
[2019-01-24] MEDS: Albuterol 0.083% 2.5 MG/3 ML Neb Soln INH PRN ×3 (09:40→22:00)
[2019-01-24] MEDS ORDERED: guaiFENesin 100 MG/5 ML Soln 5 ML UD Cup PO PRN (11:02)
[2019-01-24] MEDS ORDERED: cefTRIAXone 1 GM Vial IVPUSH SCH (12:00)
[2019-01-24] MEDS: metroNIDAZOLE 500 MG Tab PO SCH ×2 (13:00→21:33)
[2019-01-24] MEDS: Enoxaparin 30 MG/0.3 ML Syringe SUBCUT SCH (17:47)
[2019-01-24] MEDS: Acetaminophen 500 MG Tab PO SCH (21:33)
[2019-01-25] MEDS: Dextrose 5% in Water 1,000 ML IV SCH (04:58)
--- NOTE | 2019-01-25 08:09 | PCM.PN ---
- General Info Date of Service: 01/25/19 Admission Dx/Problem (Free Text): Patient cannot communicate. He shrugs her shoulders and asked him how he is doing. Nurses report he did well through the night no fevers. Has occasional cough. He vomited one time yesterday with lots of phlegm and he was suctioned. And his lungs cleared up after that. - Patient Data Vitals - Most Recent: Last Vital Signs Temp 96.6 F 01/25/19 04:00 Pulse 76 01/25/19 04:00 Resp 15 01/25/19 04:00 BP 131/94 H 01/25/19 04:00 Pulse Ox 96 01/25/19 04:00 Weight - Most Recent: 189 lb 8 oz I&O - Last 24 Hours: Intake & Output 01/24/19 01/25/19 01/25/19 22:59 06:59 14:59 Intake Total 320 460 Balance 320 460 Lab Results Last 24 Hours: Laboratory Results - last 24 hr 01/24/19 01/24/19 01/25/19 Range/Units 15:30 15:45 07:00 WBC 12.7 H (4.5-12.0) X10-3/uL RBC 3.89 L (4.30-5.75) x10(6)uL Hgb 11.5 L (13.5-17.8) g/dL Hct 34.2 (30.0-51.3) % MCV 88.0 (80-96) fL MCH 29.6 (27.7-33.6) pg MCHC 33.6 (32.2-35.4) g/dL RDW 16.0 H (11.5-15.5) % Plt Count 227 (125-369) X10(3)uL MPV 8.0 (7.4-10.4) fL Neut % (Auto) 86.9 H (46-82) % Lymph % (Auto) 8.1 L (13-37) % Hanson % (Auto) 4.2 (4-12) % Eos % (Auto) 1 (1.0-5.0) % Baso % (Auto) 0 (0-2) % Neut # (Auto) 11.1 H (1.6-8.3) # Lymph # (Auto) 1.0 (0.6-5.0) # Hanson # (Auto) 0.5 (0.0-1.3) # Eos # (Auto) 0.1 (0.0-0.8) # Baso # (Auto) 0.0 (0.0-0.2) # Sodium 148 H 144 (135-145) mmol/L Potassium 4.0 (3.5-5.3) mmol/L Chloride 110 D (100-110) mmol/L Carbon Dioxide 21 (21-32) mmol/L BUN 16 (7-18) mg/dL Creatinine 1.1 (0.70-1.30) mg/dL Est Cr Clr Drug Dosing 42.69 mL/min Estimated GFR (MDRD) > 60 (>60) BUN/Creatinine Ratio 14.5 (9-20) Glucose 136 H (80-116) mg/dL Calcium 8.2 L (8.6-10.2) mg/dL Cliff Results Last 24 Hours: Microbiology 01/21/19 14:30 Aerobic Blood Culture - Preliminary Blood - Venous NO GROWTH AFTER 3 DAYS Anaerobic Blood Culture - Preliminary NO GROWTH AFTER 3 DAYS 01/21/19 14:40 Aerobic Blood Culture - Preliminary Blood - Venous - Lab Draw NO GROWTH AFTER 3 DAYS Anaerobic Blood Culture - Preliminary NO GROWTH AFTER 3 DAYS Med Orders - Current: Current Medications Acetaminophen (Tylenol) 650 mg PO Q4H PRN PRN Reason: Pain/Fever Acetaminophen (Tylenol Extra Strength) 1,000 mg PO BEDTIME [facility] Last Admin: 01/24/19 21:33 Dose: 1,000 mg Albuterol (Proventil Neb Soln) 2.5 mg INH Q4H PRN PRN Reason: Cough Last Admin: 01/24/19 22:00 Dose: 2.5 mg Bisacodyl (Dulcolax) 10 mg RECTAL Q72H PRN PRN Reason: Constipation Ceftriaxone Sodium (Rocephin) 1 gm IVPUSH Q24H [facility] Last Admin: 01/24/19 12:58 Dose: 1 gm Dipyridamole/Aspirin (Aggrenox 200-25 Mg) 1 cap PO BID [facility] Last Admin: 01/24/19 21:32 Dose: 1 cap Enoxaparin Sodium (Lovenox) 30 mg SUBCUT Q24H [facility] Last Admin: 01/24/19 17:47 Dose: 30 mg Gabapentin (Neurontin) 300 mg PO BID@ [facility] Last Admin: 01/24/19 17:47 Dose: 300 mg Glycopyrrolate (Robinul) 0.5 mg PO TID@,, [facility] Last Admin: 01/24/19 21:32 Dose: 0.5 mg Guaifenesin (Robitussin) 200 mg PO Q4H PRN PRN Reason: Cough Dextrose/Water (Dextrose 5% In Water) 1,000 mls @ 50 mls/hr IV ASDIRECTED [facility] Last Admin: 01/25/19 04:58 Dose: 50 mls/hr Lactulose (Chronulac) 10 gm PO DAILY [facility] Last Admin: 01/24/19 08:47 Dose: 10 gm Latanoprost (Xalatan 0.005% [facility] Sol) 0 ml EYEBOTH BEDTIME [facility] Last Admin: 01/24/19 21:33 Dose: 1 drop Levetiracetam (Keppra) 500 mg PO BID [facility] Last Admin: 01/24/19 21:33 Dose: 500 mg Loperamide HCl (Imodium) 2 mg PO Q6H PRN PRN Reason: Diarrhea Magnesium Hydroxide (Milk Of Magnesia) 30 ml PO DAILY PRN PRN Reason: Constipation Metronidazole (Flagyl) 500 mg PO TID [facility] Last Admin: 01/24/19 21:33 Dose: 500 mg Nabumetone (Relafen) 500 mg PO DAILY [facility] Last Admin: 01/24/19 08:58 Dose: 500 mg Propylene Glycol (Systane Balance) 0 ml EYEBOTH BID [facility] Last Admin: 01/24/19 21:33 Dose: 1 drop Senna/Docusate Sodium (Senna Plus) 2 tab PO BID [facility] Last Admin: 01/24/19 21:33 Dose: 2 tab Sertraline HCl (Zoloft) 150 mg PO DAILY [facility] Last Admin: 01/24/19 08:49 Dose: 150 mg Sodium Chloride (Saline Flush) 10 ml FLUSH ASDIRECTED PRN PRN Reason: Keep Vein Open Last Admin: 01/23/19 23:05 Dose: 10 ml Discontinued Medications Albuterol/Ipratropium (Duoneb 3.0-0.5 Mg/3 Ml) 3 ml NEB ONETIME ONE Stop: 01/21/19 14:01 Last Admin: 01/21/19 14:22 Dose: 3 ml Ceftriaxone Sodium (Rocephin) 1 gm IVPUSH ONETIME ONE Stop: 01/21/19 16:04 Last Admin: 01/21/19 16:10 Dose: 1 gm Guaifenesin (Robitussin) 200 mg PO Q4H PRN PRN Reason: Cough Vancomycin HCl 1 gm/Vancomycin HCl 750 mg/ Sodium Chloride 500 mls @ 250 mls/ hr IV ONETIME ONE Stop: 01/21/19 18:59 Last Admin: 01/21/19 17:07 Dose: 250 mls/hr Vancomycin HCl 500 mg/Vancomycin HCl 750 mg/ Sodium Chloride 250 mls @ 167 mls/ hr IV Q24H [facility] Sodium Chloride (Normal Saline) 1,000 mls @ 70 mls/hr IV ASDIRECTED [facility] Last Admin: 01/22/19 18:06 Dose: 70 mls/hr Metronidazole 500 mg/ Premix 100 mls @ 100 mls/hr IV Q8H [facility] Last Admin: 01/21/19 18:51 Dose: Not Given Metronidazole 500 mg/ Premix 100 mls @ 100 mls/hr IV Q8H [facility] Last Admin: 01/24/19 03:03 Dose: 100 mls/hr Potassium Chloride/Dextrose/Sod Cl (D5 1/2 Ns W/ 10 Meq/L Kcl) 1,000 mls @ 70 mls/hr IV ASDIRECTED [facility] Potassium Chloride/Dextrose/Sod Cl (D5 1/2 Ns W/ 20 Meq/L Kcl) 1,000 mls @ 75 mls/hr IV ASDIRECTED [facility] Last Admin: 01/24/19 02:56 Dose: 75 mls/hr Latanoprost (Xalatan 0.005% Ophth Soln) 0 ml EYEBOTH BEDTIME [facility] Last Admin: 01/23/19 21:07 Dose: 1 drop Loperamide HCl (Imodium) 2 mg PO ASDIRECTED [facility] - Exam General: Alert, Oriented, Cooperative Lungs: Normal Respiratory Effort, Rhonchi (Occasional). No: Decreased Breath Sounds, Crackles, Rales Cardiovascular: Regular Rate, Regular Rhythm, No Murmurs - Problem List & Annotations (1) Palliative care status SNOMED Code(s): 613005272 Code(s): Z51.5 - ENCOUNTER FOR PALLIATIVE CARE Status: Acute Current Visit: Yes (2) Recurrent aspiration pneumonia SNOMED Code(s): 515534585 Code(s): J69.0 - PNEUMONITIS DUE TO INHALATION OF FOOD AND VOMIT Status: Acute Current Visit: Yes (3) Respiratory failure with hypoxia SNOMED Code(s): 29945295327243930 Code(s): J96.91 - RESPIRATORY FAILURE, UNSPECIFIED WITH HYPOXIA Status: Acute Current Visit: Yes Qualifiers: Chronicity: acute Qualified Code(s): J96.01 - Acute respiratory failure with hypoxia (4) Dysphagia SNOMED Code(s): 09295654, 544709814 Code(s): R13.10 - DYSPHAGIA, UNSPECIFIED Status: Acute Current Visit: No Qualifiers: Dysphagia type: unspecified Qualified Code(s): R13.10 - Dysphagia, unspecified (5) Hypernatremia SNOMED Code(s): 008062665 Code(s): E87.0 - HYPEROSMOLALITY AND HYPERNATREMIA Status: Acute Current Visit: Yes (6) Acute renal failure SNOMED Code(s): 95681697 Code(s): N17.9 - ACUTE KIDNEY FAILURE, UNSPECIFIED Status: Acute Current Visit: Yes - Problem List Review Problem List Initiated/Reviewed/Updated: Yes - My Orders Last 24 Hours: My Active Orders 01/24/19 08:30 Dextrose 5% in Water 1,000 ml IV ASDIRECTED 01/24/19 11:02 guaiFENesin [Robitussin] 200 mg PO Q4H PRN 01/24/19 12:00 cefTRIAXone [Rocephin] 1 gm IVPUSH Q24H 01/24/19 12:44 CXR [Chest 2V] [CR] Routine 01/24/19 14:00 metroNIDAZOLE [Flagyl] 500 mg PO TID - Assessment Assessment:: 1. Discussed with him and his about the nectar thick and pured foods and liquids. I had a conversation with speech pathologist said that's the best he should go do. I told him and his that he can eat regular food but he will most likely aspirated. It would then be a lifestyle choice. If he wants to not get pneumonia he needs to do the new diet. He doesn't like this diet. I told him and his that if they choose to eat a regular diet then they should consider hospice because most likely he'll get pneumonia and diet. They understand this. For now they're going to try to diet and they'll make their mind up when the skilled nursing. We'll discharge him home today on Levaquin, metronidazole. - Plan Plan:: 1. Change fluids to D5 water 50 mL an hour. 2. Sodium at 3:30 PM today. 3. Continue antibiotics. 4. Speech consultation which is ordered.
--- NOTE | 2019-01-25 08:16 | PCM.DCSUM1 ---
Discharge Summary - Hospital Course Free Text/Narrative:: Hospital course-patient was put on Rocephin and metronidazole IV. After 3 days of admission it was found out that the Rocephin was a one-time order from the ER so was restarted. Patient improved just on the metronidazole. He was on oxygen 3 L and was able to wean completely off be 96% on room air when he was better. His creatinine was 1.4 and was some hydration went to 1.1. White count started off at 15,000 and went down to 12,004 he was discharged. Hypernatremic with a sodium of 152. We initially gave him some half-normal saline it but only one dominant point soft given D5 water and it went down to 144 within 24 hours. Patient had some coughing and had lots of secretions. He had a speech pathology consult. He had a swallowing study in December. She recommended nectar thickened foods and fluids. I had a talk with him and his about regular diet because he does not like the thickened liquids. And that he will continue to aspirate most likely and he could from this. If they decide to do this in his lifestyle choices I recommend that maybe he could on hospice. The understands this. His blood cultures were negative. 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 He was in the hospital over week ago with aspiration pneumonia was sent home on clindamycin. He started getting short of breath, wheezing and vomited twice in the longterm. He was sent to the hospital and diagnosed with reoccurring aspiration pneumonia and admitted. He denies fevers, chills. The information I get his rate had not and from his . He was aspirating the ER and suctioned which did help. I'm not able to get any other history from him at this time. Diagnosis: Stroke: No - Discharge Data Discharge Date: 01/25/19 Discharge Disposition: DC/[facility] Condition: Stable - Discharge Diagnosis/Problem(s) (1) Palliative care status SNOMED Code(s): 529786105 ICD Code: Z51.5 - ENCOUNTER FOR PALLIATIVE CARE Status: Acute Current Visit: Yes (2) Recurrent aspiration pneumonia SNOMED Code(s): 881473695 ICD Code: J69.0 - PNEUMONITIS DUE TO INHALATION OF FOOD AND VOMIT Status: Acute Current Visit: Yes (3) Respiratory failure with hypoxia SNOMED Code(s): 93629225562936599 ICD Code: J96.91 - RESPIRATORY FAILURE, UNSPECIFIED WITH HYPOXIA Status: Acute Current Visit: Yes Qualifiers: Chronicity: acute Qualified Code(s): J96.01 - Acute respiratory failure with hypoxia (4) Dysphagia SNOMED Code(s): 87616677, 418408989 ICD Code: R13.10 - DYSPHAGIA, UNSPECIFIED Status: Acute Current Visit: No Qualifiers: Dysphagia type: unspecified Qualified Code(s): R13.10 - Dysphagia, unspecified (5) Hypernatremia SNOMED Code(s): 442769525 ICD Code: E87.0 - HYPEROSMOLALITY AND HYPERNATREMIA Status: Acute Current Visit: Yes (6) Acute renal failure SNOMED Code(s): 48525577 ICD Code: N17.9 - ACUTE KIDNEY FAILURE, UNSPECIFIED Status: Acute Current Visit: Yes - Patient Summary/Data Consults: Consultations 01/22/19 08:23 Consult to Speech Language Pathology [SOILS ENGINEER Evaluation and Treatment] [CONS] Routine Please Evaluate and Treat SOILS ENGINEER Reason for Consult: Swallow This query below is only for informational purposes and is not editable. Admission Diagnosis/Problem: Aspiration pneumonia - Patient Instructions Diet, Other: National dysphagia diet. [place] thickened fluids and foods Activity, Other: Wheelchair Driving: Do Not Drive Showering/Bathing: May Shower Notify Provider of: Fever Other/Special Instructions: 1. BMP in 7-10 days. 2. Chest x-ray in 4 weeks. - Discharge Plan Prescriptions/Med Rec: Levofloxacin [Levaquin] 750 mg PO Q48H #5 tablet metroNIDAZOLE [Flagyl] 500 mg PO TID #24 tablet Home Medications: Home Meds Acetaminophen [Acetaminophen Extra Strength] 1,000 mg PO BEDTIME 12/08/13 [ History] Aspirin/Dipyridamole [Aggrenox 200-25 MG] 1 cap PO BID 12/08/13 [History] Sennosides/Docusate Sodium [Senna-S] 2 each PO BID 12/08/13 [History] Lactulose 15 ml PO DAILY 01/24/14 [History] Magnesium Hydroxide [Milk of Magnesia] 30 ml PO DAILY PRN 01/24/14 [History] Sertraline [Zoloft] 150 mg PO DAILY 01/24/14 [History] Gabapentin [Neurontin] 300 mg PO BID@08,17 04/24/18 [History] Latanoprost [Xalatan 0.005% Ophth Soln] 1 drop EYEBOTH BEDTIME 04/24/18 [History ] Albuterol Sulfate 3 ml INH Q4H PRN 01/09/19 [History] Alendronate Sodium [Fosamax] 70 mg PO FR 01/09/19 [History] Bisacodyl [Dulcolax] 10 mg RECTAL Q72H PRN 01/09/19 [History] Loperamide [Imodium] 2 mg PO ASDIRECTED 01/09/19 [History] Nabumetone [Relafen] 500 mg PO DAILY 01/09/19 [History] atorvaSTATin [Lipitor] 20 mg PO BEDTIME 01/09/19 [History] levETIRAcetam [Keppra] 500 mg PO BID 01/09/19 [History] Acetaminophen [Tylenol] 650 mg PO Q4H PRN 01/10/19 [History] Glycopyrrolate [Robinul] 0.5 mg PO TID@,,01/10/19 [History] Propylene Glycol [Systane Balance] 1 drop EYEBOTH BID 01/10/19 [History] Clindamycin HCl 300 mg PO TID #21 capsule 01/14/19 [Rx] guaiFENesin [Robitussin] 10 ml PO Q4H PRN 01/21/19 [History] Levofloxacin [Levaquin] 750 mg PO Q48H #5 tablet 01/25/19 [Rx] metroNIDAZOLE [Flagyl] 500 mg PO TID #24 tablet 01/25/19 [Rx] Forms: ED Department Discharge Referrals: Victoriano Licea MD [Primary Care Provider] - - Discharge Summary/Plan Comment DC Time >30 min.: No - Patient Data Vitals - Most Recent: Last Vital Signs Temp 96.6 F 01/25/19 04:00 Pulse 76 01/25/19 04:00 Resp 15 01/25/19 04:00 BP 131/94 H 01/25/19 04:00 Pulse Ox 96 01/25/19 04:00 Weight - Most Recent: 189 lb 8 oz I&O - Last 24 hours: Intake & Output 01/24/19 01/25/19 01/25/19 22:59 06:59 14:59 Intake Total 320 460 Balance 320 460 Lab Results - Last 24 hrs: Laboratory Results - last 24 hr 01/24/19 01/24/19 01/25/19 Range/Units 15:30 15:45 07:00 WBC 12.7 H (4.5-12.0) X10-3/uL RBC 3.89 L (4.30-5.75) x10(6)uL Hgb 11.5 L (13.5-17.8) g/dL Hct 34.2 (30.0-51.3) % MCV 88.0 (80-96) fL MCH 29.6 (27.7-33.6) pg MCHC 33.6 (32.2-35.4) g/dL RDW 16.0 H (11.5-15.5) % Plt Count 227 (125-369) X10(3)uL MPV 8.0 (7.4-10.4) fL Neut % (Auto) 86.9 H (46-82) % Lymph % (Auto) 8.1 L (13-37) % [place] % (Auto) 4.2 (4-12) % Eos % (Auto) 1 (1.0-5.0) % Baso % (Auto) 0 (0-2) % Neut # (Auto) 11.1 H (1.6-8.3) # Lymph # (Auto) 1.0 (0.6-5.0) # [place] # (Auto) 0.5 (0.0-1.3) # Eos # (Auto) 0.1 (0.0-0.8) # Baso # (Auto) 0.0 (0.0-0.2) # Sodium 148 H 144 (135-145) mmol/L Potassium 4.0 (3.5-5.3) mmol/L Chloride 110 D (100-110) mmol/L Carbon Dioxide 21 (21-32) mmol/L BUN 16 (7-18) mg/dL Creatinine 1.1 (0.70-1.30) mg/dL Est Cr Clr Drug Dosing 42.69 mL/min Estimated GFR (MDRD) > 60 (>60) BUN/Creatinine Ratio 14.5 (9-20) Glucose 136 H (80-116) mg/dL Calcium 8.2 L (8.6-10.2) mg/dL [facility] Results - Last 24 hrs: Microbiology 01/21/19 14:30 Aerobic Blood Culture - Preliminary Blood - Venous NO GROWTH AFTER 3 DAYS Anaerobic Blood Culture - Preliminary NO GROWTH AFTER 3 DAYS 01/21/19 14:40 Aerobic Blood Culture - Preliminary Blood - Venous - Lab Draw NO GROWTH AFTER 3 DAYS Anaerobic Blood Culture - Preliminary NO GROWTH AFTER 3 DAYS Med Orders - Current: Current Medications Acetaminophen (Tylenol) 650 mg PO Q4H PRN PRN Reason: Pain/Fever Acetaminophen (Tylenol Extra Strength) 1,000 mg PO BEDTIME [facility] Last Admin: 01/24/19 21:33 Dose: 1,000 mg Albuterol (Proventil Neb Soln) 2.5 mg INH Q4H PRN PRN Reason: Cough Last Admin: 01/24/19 22:00 Dose: 2.5 mg Bisacodyl (Dulcolax) 10 mg RECTAL Q72H PRN PRN Reason: Constipation Ceftriaxone Sodium (Rocephin) 1 gm IVPUSH Q24H [facility] Last Admin: 01/24/19 12:58 Dose: 1 gm Dipyridamole/Aspirin (Aggrenox 200-25 Mg) 1 cap PO BID [facility] Last Admin: 01/24/19 21:32 Dose: 1 cap Enoxaparin Sodium (Lovenox) 30 mg SUBCUT Q24H [facility] Last Admin: 01/24/19 17:47 Dose: 30 mg Gabapentin (Neurontin) 300 mg PO BID@ [facility] Last Admin: 01/24/19 17:47 Dose: 300 mg Glycopyrrolate (Robinul) 0.5 mg PO TID@,, [facility] Last Admin: 01/24/19 21:32 Dose: 0.5 mg Guaifenesin (Robitussin) 200 mg PO Q4H PRN PRN Reason: Cough Dextrose/Water (Dextrose 5% In Water) 1,000 mls @ 50 mls/hr IV ASDIRECTED [facility] Last Admin: 01/25/19 04:58 Dose: 50 mls/hr Lactulose (Chronulac) 10 gm PO DAILY [facility] Last Admin: 01/24/19 08:47 Dose: 10 gm Latanoprost (Xalatan 0.005% Ophth Soln) 0 ml EYEBOTH BEDTIME [facility] Last Admin: 01/24/19 21:33 Dose: 1 drop Levetiracetam (Keppra) 500 mg PO BID [facility] Last Admin: 01/24/19 21:33 Dose: 500 mg Loperamide HCl (Imodium) 2 mg PO Q6H PRN PRN Reason: Diarrhea Magnesium Hydroxide (Milk Of Magnesia) 30 ml PO DAILY PRN PRN Reason: Constipation Metronidazole (Flagyl) 500 mg PO TID [facility] Last Admin: 01/24/19 21:33 Dose: 500 mg Nabumetone (Relafen) 500 mg PO DAILY [facility] Last Admin: 01/24/19 08:58 Dose: 500 mg Propylene Glycol (Systane Balance) 0 ml EYEBOTH BID [facility] Last Admin: 01/24/19 21:33 Dose: 1 drop Senna/Docusate Sodium (Senna Plus) 2 tab PO BID [facility] Last Admin: 01/24/19 21:33 Dose: 2 tab Sertraline HCl (Zoloft) 150 mg PO DAILY [facility] Last Admin: 01/24/19 08:49 Dose: 150 mg Sodium Chloride (Saline Flush) 10 ml FLUSH ASDIRECTED PRN PRN Reason: Keep Vein Open Last Admin: 01/23/19 23:05 Dose: 10 ml Discontinued Medications Albuterol/Ipratropium (Duoneb 3.0-0.5 Mg/3 Ml) 3 ml NEB ONETIME ONE Stop: 01/21/19 14:01 Last Admin: 01/21/19 14:22 Dose: 3 ml Ceftriaxone Sodium (Rocephin) 1 gm IVPUSH ONETIME ONE Stop: 01/21/19 16:04 Last Admin: 01/21/19 16:10 Dose: 1 gm Guaifenesin (Robitussin) 200 mg PO Q4H PRN PRN Reason: Cough Vancomycin HCl 1 gm/Vancomycin HCl 750 mg/ Sodium Chloride 500 mls @ 250 mls/ hr IV ONETIME ONE Stop: 01/21/19 18:59 Last Admin: 01/21/19 17:07 Dose: 250 mls/hr Vancomycin HCl 500 mg/Vancomycin HCl 750 mg/ Sodium Chloride 250 mls @ 167 mls/ hr IV Q24H [facility] Sodium Chloride (Normal Saline) 1,000 mls @ 70 mls/hr IV ASDIRECTED [facility] Last Admin: 01/22/19 18:06 Dose: 70 mls/hr Metronidazole 500 mg/ Premix 100 mls @ 100 mls/hr IV Q8H [facility] Last Admin: 01/21/19 18:51 Dose: Not Given Metronidazole 500 mg/ Premix 100 mls @ 100 mls/hr IV Q8H [facility] Last Admin: 01/24/19 03:03 Dose: 100 mls/hr Potassium Chloride/Dextrose/Sod Cl (D5 1/2 Ns W/ 10 Meq/L Kcl) 1,000 mls @ 70 mls/hr IV ASDIRECTED [facility] Potassium Chloride/Dextrose/Sod Cl (D5 1/2 Ns W/ 20 Meq/L Kcl) 1,000 mls @ 75 mls/hr IV ASDIRECTED [facility] Last Admin: 01/24/19 02:56 Dose: 75 mls/hr Latanoprost (Xalatan 0.005% [facility]) 0 ml EYEBOTH BEDTIME [facility] Last Admin: 01/23/19 21:07 Dose: 1 drop Loperamide HCl (Imodium) 2 mg PO ASDIRECTED [facility]
[2019-01-25] MEDS: metroNIDAZOLE 500 MG Tab PO SCH (08:46)
[2019-01-25] MEDS: Gabapentin 300 MG Cap PO SCH (08:46)
[2019-01-25] MEDS: levETIRAcetam 500 MG Tab PO SCH (08:46)
[2019-01-25] MEDS: Glycopyrrolate 1 MG Tab PO SCH (08:46)
[2019-01-25] MEDS: Lactulose Soln 10 GM/15 ML 15 ML UD Cup PO SCH (08:47)
[2019-01-25] MEDS: Aspirin/Dipyridamole 200-25 MG Cap.ER PO SCH (08:47)
[2019-01-25] MEDS: PROPYLENE GLYCOL 0.6% EYEBOTH SCH (08:47)
[2019-01-25] MEDS: Sertraline 50 MG Tab PO SCH (08:48)
[2019-01-25 10:51] VITALS: BP 140/65
== END 2019-01-25 09:38 | DRG 177 ==
LOC: FB.ED 13:41 → FB.MS 16:26
PROVIDERS: ADMIT Family Medicine; ATTEND Family Medicine
DX: J69.0 Pneumonitis due to inhalation of food and vomit (principal); J96.01 Acute respiratory failure with hypoxia; I69.951 Hemiplegia and hemiparesis following unspecified cerebrovascular disease affecting right dominant side; E87.0 Hyperosmolality and hypernatremia; N17.9 Acute kidney failure, unspecified; Z51.5 Encounter for palliative care; Z66 Do not resuscitate; R13.10 Dysphagia, unspecified; I11.0 Hypertensive heart disease with heart failure; R06.09 Other forms of dyspnea; R09.02 Hypoxemia; R11.0 Nausea; I50.9 Heart failure, unspecified; Z87.01 Personal history of pneumonia (recurrent); I69.920 Aphasia following unspecified cerebrovascular disease; G40.909 Epilepsy, unspecified, not intractable, without status epilepticus; H40.9 Unspecified glaucoma; H35.30 Unspecified macular degeneration; E78.00 Pure hypercholesterolemia, unspecified; Z95.0 Presence of cardiac pacemaker; Z85.46 Personal history of malignant neoplasm of prostate; F32.9 Major depressive disorder, single episode, unspecified; R32 Unspecified urinary incontinence; M75.02 Adhesive capsulitis of left shoulder; E63.9 Nutritional deficiency, unspecified; Z79.82 Long term (current) use of aspirin; Z88.1 Allergy status to other antibiotic agents; Z91.040 Latex allergy status; Z88.0 Allergy status to penicillin; Z88.8 Allergy status to other drugs, medicaments and biological substances
CPT/HCPCS: 31720; 36415; 71046; 80053; 82803; 83605; 83880; 84484; 85025; 85379; 85610; 86140; 87040 ×2; 93005; 94640; 96374; 99285; J0696; J2001; 36410; 80048; 84295; A9270-GY; J1650; J3370; J3480; J3490; J7030; J7040; J7060; J7620-GY